=== PATIENT | male | born 1960 | race Two or more races ===

== ENCOUNTER 2018-11-03 06:54 | Emergency (ER) | payer MEDICAID, OTHER ==
[~2018-11-03] VITALS: Ht 177.8 cm; Wt 70.7 kg
[~2018-11-03 06:54] MED LIST: CYCL-1 PO; IBUP-1986 PO
[2018-11-03] MEDS ORDERED: chlorpheniramine 4mg tablet PO PRN (07:50)
[2018-11-03 07:51] LABS: BASOPHILS # (AUTO) 0.1 X10'3 (0-0.2); BASOPHILS % (AUTO) 1.3 % (0-1); EOSINOPHILS # (AUTO) 0.1 X10'3 (0-0.9); EOSINOPHILS % (AUTO) 1.5 % (0-6); HEMATOCRIT 35.9 % (42.0-52.0); HEMOGLOBIN 12.1 g/dl (14.0-17.9); LYMPHOCYTES % (AUTO) 32.1 % (21-51); MEAN CORPUSCULAR HEMOGLOBIN 33.7 PG (27.0-31.0); MEAN CORPUSCULAR HGB CONC 33.8 g/dL (33.0-36.5); MEAN CORPUSCULAR VOLUME 99.7 FL (78-98); MEAN PLATELET VOLUME 7.9 FL (7.4-10.4); MONOCYTES # (AUTO) 0.3 X10'3 (0-0.9); MONOCYTES % (AUTO) 5.5 % (2-12); NEUTROPHILS # (AUTO) 3.6 X10'3 (1.8-7.7); NEUTROPHILS % (AUTO) 59.6 % (42-75); PLATELET COUNT 227 X10'3 (140-440); RED CELL DISTRIBUTION WIDTH 13.8 % (11.5-14.5); WHITE BLOOD COUNT 6.1 X10'3 (4.5-11.0)
[2018-11-03 07:58] LABS: ALANINE AMINOTRANSFERASE 103 U/L (12-78); ALBUMIN 3.1 G/DL (3.4-5.0); ALBUMIN/GLOBULIN RATIO 0.7 (1.1-1.5); ALKALINE PHOSPHATASE 73 IU/L (46-116); ANION GAP 9 (8-16); ASPARTATE AMINO TRANSFERASE 175 U/L (10-37); BILIRUBIN,TOTAL 0.4 MG/DL (0.1-1.0); BLOOD UREA NITROGEN 8 MG/DL (7-18); BUN/CREATININE RATIO 10.5 (5.4-32.0); CHLORIDE 106 MMOL/L (99-107); CREATININE 0.76 MG/DL (0.60-1.10); GLUCOSE 105 MG/DL (70-104); POTASSIUM 4.6 MMOL/L (3.5-5.1); SODIUM 142 MMOL/L (135-145); TOTAL CARBON DIOXIDE 27.3 MMOL/L (24-32); TOTAL PROTEIN 7.3 G/DL (6.4-8.2); eGFR > 90 ML/MIN
[2018-11-03] MEDS ORDERED: AZIT-72 PO (09:12)
[2018-11-03] MEDS ORDERED: CHL4T PO (09:12)
[2018-11-03] MEDS ORDERED: IBUP-1984 PO (09:12)
[2018-11-03] MEDS ORDERED: azithromycin 250mg tablet PO ONE (09:20)
[2018-11-03 09:47] VITALS: BP 154/103
== END 2018-11-03 09:50 | disposition home or self-care (01) ==
LOC: ER 06:55
DX: J18.9 Pneumonia, unspecified organism (principal); J32.1 Chronic frontal sinusitis; F17.200 Nicotine dependence, unspecified, uncomplicated; F12.90 Cannabis use, unspecified, uncomplicated; Z59.0 Homelessness; Z56.0 Unemployment, unspecified
CPT/HCPCS: 36415; 71045; 80053; 83880; 84484; 85025; 85610; 93005; 99284

== ENCOUNTER 2018-12-06 07:53 | Inpatient (IN) | payer MEDICAID ==
[~2018-12-06] VITALS: Ht 177.8 cm; Wt 75.0 kg
[~2018-12-06 07:53] MED LIST changes: +CHL4T PO
[2018-12-06 08:34] LABS: BASOPHILS # (AUTO) 0.1 X10'3 (0-0.2); BASOPHILS % (AUTO) 1.1 % (0-1); EOSINOPHILS % (AUTO) 0.2 % (0-6); HEMOGLOBIN 12.3 g/dl (14.0-17.9); LYMPHOCYTES # (AUTO) 2.1 X10'3 (1.1-4.8); LYMPHOCYTES % (AUTO) 28.9 % (21-51); MEAN CORPUSCULAR HEMOGLOBIN 33.2 PG (27.0-31.0); MEAN CORPUSCULAR HGB CONC 34.3 g/dL (33.0-36.5); MEAN CORPUSCULAR VOLUME 96.9 FL (78-98); MEAN PLATELET VOLUME 8.3 FL (7.4-10.4); MONOCYTES # (AUTO) 0.5 X10'3 (0-0.9); MONOCYTES % (AUTO) 6.6 % (2-12); NEUTROPHILS # (AUTO) 4.6 X10'3 (1.8-7.7); NEUTROPHILS % (AUTO) 63.2 % (42-75); PLATELET COUNT 311 X10'3 (140-440); RED BLOOD COUNT 3.71 X10'6 (4.70-6.10); RED CELL DISTRIBUTION WIDTH 13.7 % (11.5-14.5); WHITE BLOOD COUNT 7.3 X10'3 (4.5-11.0)
[2018-12-06 08:42] LABS: PARTIAL THROMBOPLASTIN TIME 28 SECONDS (22-32)
[2018-12-06 08:45] LABS: ALBUMIN 3.1 G/DL (3.4-5.0); ANION GAP 9 (8-16); BLOOD UREA NITROGEN 6 MG/DL (7-18); BUN/CREATININE RATIO 6.7 (5.4-32.0); CALCIUM 8.6 MG/DL (8.5-10.1); CHLORIDE 94 MMOL/L (99-107); GLUCOSE 126 MG/DL (70-104); POTASSIUM 4.5 MMOL/L (3.5-5.1); SODIUM 127 MMOL/L (135-145); TOTAL CARBON DIOXIDE 24.3 MMOL/L (24-32); TOTAL PROTEIN 6.7 G/DL (6.4-8.2); eGFR 86 ML/MIN
[2018-12-06 08:46] LABS: ALANINE AMINOTRANSFERASE 132 U/L (12-78); ALBUMIN/GLOBULIN RATIO 0.9 (1.1-1.5); ALKALINE PHOSPHATASE 83 IU/L (46-116); ASPARTATE AMINO TRANSFERASE 110 U/L (10-37)
[2018-12-06] MEDS ORDERED: furosemide 10 MG/1 ML 10ml inj IV ONE (09:05)
--- NOTE | 2018-12-06 09:28 | NUR ---
breaking primary RN, pt was asking questions about his health in general, educated him that he needs to stop drinking, as his brother of liver failure, he states he has reduced his etoh a lot, I told him great job, continue to safely reduce wtoh consumption
[2018-12-06] MEDS ORDERED: FURO-150 PO (09:58)
[2018-12-06] MEDS ORDERED: potassium Cl 20 mEq SR tablet PO PRN (10:15)
[2018-12-06] MEDS ORDERED: potassium CL 10mEq/100ml bag 100 ML IV PRN ×2 (10:15)
[2018-12-06] MEDS ORDERED: acetaminophen 325mg tablet PO PRN ×2 (10:15)
[2018-12-06] MEDS ORDERED: ondansetron/PF 4mg/2ml inj IV PRN (10:15)
[2018-12-06] MEDS: K and/or MAG REPLACEMENT MC SCH (10:15)
[2018-12-06] MEDS ORDERED: magnesium 4gm in 100ml NS 100 ML IV PRN (10:15)
[2018-12-06] MEDS ORDERED: bisacodyl 10mg suppository rectal RC PRN (10:15)
[2018-12-06] MEDS ORDERED: magnesium hydroxide 30ml (MOM) UD suspension PO PRN (10:15)
[2018-12-06] MEDS ORDERED: magnesium 2GM in 50ml NS 50 ML IV PRN (10:15)
[2018-12-06] MEDS ORDERED: metoclopramide 5 mg/ml inj IV PRN (10:15)
[2018-12-06] MEDS ORDERED: diphenhydrAMINE 25mg capsule PO PRN (10:15)
[2018-12-06] MEDS ORDERED: diphenhydrAMINE 50 mg/ml inj IV PRN (10:15)
[2018-12-06] MEDS ORDERED: mag hydrox/Alum hydrox/simeth 30ml oral suspension PO PRN (10:15)
[2018-12-06] MEDS ORDERED: HYDROcodone/acetaminophen 5mg/325mg tablet PO PRN (10:15)
[2018-12-06] MEDS ORDERED: LORazepam 2 mg/ml vial IV ONE (10:15)
[2018-12-06 10:41] LABS: ETHANOL < 0.010 GM/DL (0.0-0.010)
[2018-12-06 10:58] LABS: HEMOGLOBIN A1C 5.3 % (4.5-6.2)
[2018-12-06 11:04] LABS: PHOSPHORUS 3.9 MG/DL (2.3-4.5)
[2018-12-06 11:31] LABS: URINE AMPHETAMINE SCREEN NEGATIVE (Neg); URINE BARBITUATE SCREEN NEGATIVE (Neg); URINE BENZODIAZEPINES SCREEN NEGATIVE (Neg); URINE CANNABINOID SCREEN POSITIVE (Neg); URINE COCAINE SCREEN NEGATIVE (Neg); URINE METHADONE SCREEN NEGATIVE (Neg); URINE OPIATE SCREEN NEGATIVE (Neg); URINE PHENCYCLIDINE SCREEN NEGATIVE (Neg)
--- NOTE | 2018-12-06 12:00 | NUR ---
Patient in room PCU 3023. I have received report from RADHA Funes RN and had the opportunity to ask questions. Patient not yet arrived on unit.
--- NOTE | 2018-12-06 12:20 | NUR ---
Received report from ROXANNE Saini. Awaiting patient arrival to U 3025R.
[2018-12-06 12:30] VITALS: BP 130/96
--- NOTE | 2018-12-06 12:30 | NUR ---
Received report from Yeny OLIVEIRA. Patient ambulated self from ED bed to PCU bed with no complications. Oriented to room, call light within reach. 2 RN skin check, noted dryness on hands and feet, and thickened nail beds. Vital signs BP 130/96 HR 113 R 16 T 98.0 F 02 99 RA. All needs met at this time.
[2018-12-06] MEDS ORDERED: NO HOME MEDS (13:08)
[2018-12-06] MEDS ORDERED: LORazepam 1 MG tablet PO PRN (13:15)
[2018-12-06] MEDS ORDERED: haloperidol 5mg tablet PO PRN (13:15)
[2018-12-06] MEDS ORDERED: LORazepam 2 mg/ml vial IV PRN (13:15)
[2018-12-06] MEDS ORDERED: haloperidol lactate 5mg/ml inj IM PRN (13:15)
[2018-12-06 15:00] VITALS: BP 137/95
--- NOTE | 2018-12-06 18:18 | NUR ---
Orientee documentation: I have reviewed and agree with all interventions, assessments performed and documented by ROXANNE Saini. Orientee Medication Administration: For this medication-pass time frame, all medication were reviewed, dispensed, administered and documented per hospital policy by ROXANNE Saini.
--- NOTE | 2018-12-06 18:29 | NUR ---
Problems reprioritized. Patient report given, questions answered & plan of care reviewed with Brooklyn OLIVEIRA. Patient stable at transfer of care.
[2018-12-06 19:00] VITALS: BP 130/93
[2018-12-06] MEDS: furosemide 40mg/4ml inj IV SCH (19:47)
[2018-12-06] MEDS ORDERED: temazepam 15mg capsule PO PRN (21:00)
[2018-12-06 23:00] VITALS: BP 105/72
[2018-12-07 03:00] VITALS: BP 122/88
[2018-12-07] MEDS ORDERED: pneumococcal 23-VAL P-sac vacc 25 mcg/0.5ml vial IMVAC ONE (04:25)
[2018-12-07 05:10] LABS: ALANINE AMINOTRANSFERASE 111 U/L (12-78); ALBUMIN 2.8 G/DL (3.4-5.0); ALBUMIN/GLOBULIN RATIO 0.8 (1.1-1.5); ALKALINE PHOSPHATASE 74 IU/L (46-116); ANION GAP 11 (8-16); ASPARTATE AMINO TRANSFERASE 82 U/L (10-37); BILIRUBIN,TOTAL 1.1 MG/DL (0.1-1.0); BLOOD UREA NITROGEN 8 MG/DL (7-18); BUN/CREATININE RATIO 8.7 (5.4-32.0); CALCIUM 8.5 MG/DL (8.5-10.1); CHLORIDE 96 MMOL/L (99-107); CHOL/HDL RATIO 2.9 (0.00-4.99); CHOLESTEROL 161 MG/DL (0-200); CREATININE 0.92 MG/DL (0.60-1.10); GLUCOSE 98 MG/DL (70-104); HDL CHOLESTEROL 55 MG/DL (35-60); LDL CHOLESTEROL 103 MG/DL (50-100); MAGNESIUM 1.3 MG/DL (1.5-2.4); PHOSPHORUS 4.2 MG/DL (2.3-4.5); POTASSIUM 3.5 MMOL/L (3.5-5.1); SODIUM 133 MMOL/L (135-145); TOTAL CARBON DIOXIDE 26.1 MMOL/L (24-32); TOTAL PROTEIN 6.2 G/DL (6.4-8.2); TRIGLYCERIDES 59 MG/DL (20-135); eGFR 84 ML/MIN
[2018-12-07 05:21] LABS: BASOPHILS # (AUTO) 0.1 X10'3 (0-0.2); BASOPHILS % (AUTO) 1.1 % (0-1); EOSINOPHILS # (AUTO) 0.1 X10'3 (0-0.9); EOSINOPHILS % (AUTO) 1.1 % (0-6); HEMATOCRIT 40.2 % (42.0-52.0); HEMOGLOBIN 13.3 g/dl (14.0-17.9); LYMPHOCYTES # (AUTO) 2.6 X10'3 (1.1-4.8); LYMPHOCYTES % (AUTO) 42.8 % (21-51); MEAN CORPUSCULAR HEMOGLOBIN 32.3 PG (27.0-31.0); MEAN CORPUSCULAR HGB CONC 33.2 g/dL (33.0-36.5); MEAN CORPUSCULAR VOLUME 97.5 FL (78-98); MEAN PLATELET VOLUME 8.3 FL (7.4-10.4); MONOCYTES # (AUTO) 0.5 X10'3 (0-0.9); MONOCYTES % (AUTO) 8.9 % (2-12); NEUTROPHILS # (AUTO) 2.8 X10'3 (1.8-7.7); NEUTROPHILS % (AUTO) 46.1 % (42-75); PLATELET COUNT 284 X10'3 (140-440); RED BLOOD COUNT 4.12 X10'6 (4.70-6.10); RED CELL DISTRIBUTION WIDTH 13.8 % (11.5-14.5); WHITE BLOOD COUNT 6.1 X10'3 (4.5-11.0)
--- NOTE | 2018-12-07 06:10 | NUR ---
Problems reprioritized. Patient report given, questions answered & plan of care reviewed with Rhea OLIVEIRA & Muna RN.
[2018-12-07 07:11] VITALS: BP 123/87
--- NOTE | 2018-12-07 07:27 | NUR ---
Patient in room PCU 3023. I have received report from ROXANNE Barahona and had the opportunity to ask questions and assume patient care.
[2018-12-07] MEDS: K and/or MAG REPLACEMENT MC SCH ×2 (08:00→09:02)
[2018-12-07] MEDS: furosemide 40mg/4ml inj IV SCH ×2 (08:58→21:48)
[2018-12-07] MEDS: folic acid 1mg tablet PO SCH (09:00)
[2018-12-07] MEDS: multivitamins, therapeutics tablet PO SCH (09:00)
[2018-12-07] MEDS: enoxaparin 40mg/0.4ml syringe SUBCUT SCH (09:00)
[2018-12-07] MEDS: thiamine 100mg tablet PO SCH (09:00)
[2018-12-07] MEDS: magnesium Cl slow-release 64mg tablet PO PRN ×2 (09:13→22:52)
[2018-12-07] MEDS ORDERED: FLU VACC QS2019-20 36MOS UP/PF 60 MCG/0.5 ML SYRINGE IMVAC ONE (10:00)
[2018-12-07 11:15] VITALS: BP 132/96
[2018-12-07] MEDS ORDERED: metoprolol tartrate 12.5mg (1/2 tablet) PO ONE (12:44)
[2018-12-07 15:00] VITALS: BP 118/85
[2018-12-07 18:00] VITALS: BP 121/89
--- NOTE | 2018-12-07 18:38 | NUR ---
Problems reprioritized. Patient report given, questions answered & plan of care reviewed with ROXANNE Barahona & ROXANNE Davila.
[2018-12-07] MEDS: metoprolol tartrate 12.5mg (1/2 tablet) PO SCH (21:48)
[2018-12-07 22:00] VITALS: BP 95/62
[2018-12-08 02:00] VITALS: BP 125/89
[2018-12-08 05:54] LABS: BASOPHILS # (AUTO) 0.1 X10'3 (0-0.2); BASOPHILS % (AUTO) 1.1 % (0-1); EOSINOPHILS # (AUTO) 0.1 X10'3 (0-0.9); EOSINOPHILS % (AUTO) 1.7 % (0-6); HEMOGLOBIN 12.2 g/dl (14.0-17.9); LYMPHOCYTES # (AUTO) 2.6 X10'3 (1.1-4.8); LYMPHOCYTES % (AUTO) 41.5 % (21-51); MEAN CORPUSCULAR HEMOGLOBIN 32.7 PG (27.0-31.0); MEAN PLATELET VOLUME 8.1 FL (7.4-10.4); MONOCYTES # (AUTO) 0.5 X10'3 (0-0.9); MONOCYTES % (AUTO) 7.1 % (2-12); NEUTROPHILS # (AUTO) 3.1 X10'3 (1.8-7.7); NEUTROPHILS % (AUTO) 48.6 % (42-75); PLATELET COUNT 257 X10'3 (140-440); RED BLOOD COUNT 3.75 X10'6 (4.70-6.10); RED CELL DISTRIBUTION WIDTH 13.3 % (11.5-14.5); WHITE BLOOD COUNT 6.4 X10'3 (4.5-11.0)
[2018-12-08 06:00] VITALS: BP 120/83
--- NOTE | 2018-12-08 06:00 | NUR ---
Patient in room PCU 3023. I have received report from Muna Najera RN and had the opportunity to ask questions and assume patient care.
--- NOTE | 2018-12-08 06:00 | NUR ---
Orientee Medication Administration: For this medication-pass time frame, all medication were reviewed, dispensed, administered and documented per hospital policy by Armida OLIVEIRA. Orientee documentation: I have reviewed and agree with all interventions, assessments performed and documented by Armida OLIVEIRA.
[2018-12-08 06:04] LABS: ALANINE AMINOTRANSFERASE 80 U/L (12-78); ALBUMIN 2.7 G/DL (3.4-5.0); ALBUMIN/GLOBULIN RATIO 0.8 (1.1-1.5); ALKALINE PHOSPHATASE 62 IU/L (46-116); ANION GAP 10 (8-16); ASPARTATE AMINO TRANSFERASE 49 U/L (10-37); BILIRUBIN,TOTAL 0.9 MG/DL (0.1-1.0); BLOOD UREA NITROGEN 11 MG/DL (7-18); BUN/CREATININE RATIO 11.6 (5.4-32.0); CHLORIDE 99 MMOL/L (99-107); CREATININE 0.95 MG/DL (0.60-1.10); GLUCOSE 92 MG/DL (70-104); MAGNESIUM 1.3 MG/DL (1.5-2.4); PHOSPHORUS 4.5 MG/DL (2.3-4.5); POTASSIUM 3.2 MMOL/L (3.5-5.1); SODIUM 136 MMOL/L (135-145); TOTAL CARBON DIOXIDE 27.2 MMOL/L (24-32); TOTAL PROTEIN 5.9 G/DL (6.4-8.2); eGFR 81 ML/MIN
--- NOTE | 2018-12-08 06:19 | NUR ---
Problems reprioritized. Patient report given, questions answered & plan of care reviewed with ROXANNE Lynch.
[2018-12-08] MEDS: potassium Cl 20 mEq SR tablet PO PRN ×2 (07:10→13:22)
[2018-12-08] MEDS: magnesium Cl slow-release 64mg tablet PO PRN (07:10)
[2018-12-08] MEDS: multivitamins, therapeutics tablet PO SCH (07:10)
[2018-12-08] MEDS: thiamine 100mg tablet PO SCH (07:10)
[2018-12-08] MEDS: folic acid 1mg tablet PO SCH (07:11)
[2018-12-08] MEDS: furosemide 40mg/4ml inj IV SCH (07:12)
[2018-12-08] MEDS: metoprolol tartrate 12.5mg (1/2 tablet) PO SCH (07:12)
[2018-12-08] MEDS: enoxaparin 40mg/0.4ml syringe SUBCUT SCH (07:13)
[2018-12-08] MEDS ORDERED: lisinopril 10 MG tablet PO SCH (08:00)
[2018-12-08 11:00] VITALS: BP 105/74
--- NOTE | 2018-12-08 12:01 | NUR ---
PAGER ID: [phone] MESSAGE: [id number] Kobe Tompkins is under the impression he is getting discharged today. Is that correct? ROXANNE Lynch Ext [phone]
[2018-12-08 13:33] LABS: HBSAG SCREEN Negative (Negative); HEP A AB, IGM Negative (Negative); HEP B CORE AB, IGM Negative (Negative); HEPATITIS C ANTIBODY <0.1 s/co ratio (0.0-0.9)
[2018-12-08 15:00] VITALS: BP 106/80
[2018-12-08] MEDS ORDERED: LISI10TA4 PO (16:51)
[2018-12-08] MEDS ORDERED: folic acid tablet PO (16:51)
[2018-12-08] MEDS ORDERED: METO25TA6 PO (16:51)
[2018-12-08] MEDS ORDERED: MULT-1179 PO (16:51)
[2018-12-08] MEDS ORDERED: FURO20TA4 PO (16:51)
[2018-12-08] MEDS ORDERED: thiamine tablet PO (16:51)
--- NOTE | 2018-12-08 17:13 | NUR ---
PAGER ID: [phone] MESSAGE: [id number] Kobe Tompkins doesn't have based beta renata for CHF core measure for EF under 40. Is currently on Lopressor, do you want him changed to Toprol-xl or another EBP beta renata? ROXANNE Lynch Ext [phone]
[2018-12-08] MEDS ORDERED: METO-539 PO (17:21)
--- NOTE | 2018-12-08 17:58 | NUR ---
Discharged. PIV taken out and tele was returned. Educated on CHF and CHF rehab. Educated on meds and follow-up. CM educated patient on [facility] who he will see for CHF follow-up since he has no PCP. ID ban cut off, and patient left with belongings. Patient walked home which is near hospital. Meds were called into [facility] on [address]. Stable for DC per .
--- NOTE | 2018-12-08 22:40 | NUR ---
Patient wanted to finish dinner before discharge. He was A&Ox4, in no apparent distress, able to dress himself, and walked out the hospital at 1940.
--- NOTE | 2018-12-08 22:44 | NUR ---
Patient in room PCU 3023. I have received report from ROXANNE Lynch and had the opportunity to ask questions and assume patient care.
== END 2018-12-08 19:54 | disposition home or self-care (01) | DRG 194 ==
LOC: ER 07:54 → ED HOLD 10:14 → PCU 3S 12:27
PROVIDERS: ADMIT Family Medicine; ATTEND Internal Medicine
PROC: 3E02340 Introduction of Influenza Vaccine into Muscle, Percutaneous Approach (ICD-10-PCS; principal; 2018-12-07)
PROC: 3E0234Z Introduction of Serum, Toxoid and Vaccine into Muscle, Percutaneous Approach (ICD-10-PCS; 2018-12-07)
DX: I11.0 Hypertensive heart disease with heart failure (principal); E87.1 Hypo-osmolality and hyponatremia; F10.20 Alcohol dependence, uncomplicated; I50.21 Acute systolic (congestive) heart failure; F12.90 Cannabis use, unspecified, uncomplicated; R00.0 Tachycardia, unspecified; R74.0 Nonspecific elevation of levels of transaminase and lactic acid dehydrogenase [LDH]; Z59.0 Homelessness; Z23 Encounter for immunization
CPT/HCPCS: 36415; 71045; 80053; 80061; 80074; 80305; 80320; 83036; 83735; 83880; 84100; 84443; 84484; 85025; 85610; 85730; 87081; 90732; 93005; 93306; 96374; 99285; G0378; J1650; J1940; J2060

== ENCOUNTER 2018-12-10 23:50 | Emergency (ER) | payer MEDICAID ==
[~2018-12-10] VITALS: Ht 177.8 cm; Wt 73.4 kg
[~2018-12-10 23:50] MED LIST changes: -CHL4T PO; -CYCL-1 PO; +FURO20TA4 PO; -IBUP-1986 PO; +LISI10TA4 PO; +METO-539 PO; +MULT-1179 PO; +folic acid tablet PO; +thiamine tablet PO
[2018-12-11 00:50] LABS: BASOPHILS # (AUTO) 0.1 X10'3 (0-0.2); BASOPHILS % (AUTO) 1.4 % (0-1); EOSINOPHILS # (AUTO) 0.1 X10'3 (0-0.9); EOSINOPHILS % (AUTO) 1.5 % (0-6); HEMATOCRIT 34.8 % (42.0-52.0); HEMOGLOBIN 11.9 g/dl (14.0-17.9); LYMPHOCYTES # (AUTO) 2.7 X10'3 (1.1-4.8); MEAN CORPUSCULAR HEMOGLOBIN 32.6 PG (27.0-31.0); MEAN CORPUSCULAR HGB CONC 34.2 g/dL (33.0-36.5); MEAN CORPUSCULAR VOLUME 95.3 FL (78-98); MEAN PLATELET VOLUME 7.9 FL (7.4-10.4); MONOCYTES # (AUTO) 0.4 X10'3 (0-0.9); MONOCYTES % (AUTO) 5.6 % (2-12); NEUTROPHILS # (AUTO) 3.2 X10'3 (1.8-7.7); NEUTROPHILS % (AUTO) 49.5 % (42-75); PLATELET COUNT 265 X10'3 (140-440); RED BLOOD COUNT 3.65 X10'6 (4.70-6.10); RED CELL DISTRIBUTION WIDTH 13.5 % (11.5-14.5); WHITE BLOOD COUNT 6.5 X10'3 (4.5-11.0)
[2018-12-11] MEDS ORDERED: ondansetron/PF 4mg/2ml inj IV ONE (00:55)
[2018-12-11] MEDS ORDERED: famotidine/PF 10 mg/ml inj IV ONE (00:55)
[2018-12-11] MEDS ORDERED: mag hydrox/Alum hydrox/simeth 30ml oral suspension PO ONE (00:55)
[2018-12-11 00:59] LABS: PARTIAL THROMBOPLASTIN TIME 27 SECONDS (22-32)
[2018-12-11 01:02] LABS: ALANINE AMINOTRANSFERASE 81 U/L (12-78); ALBUMIN 3.2 G/DL (3.4-5.0); ALBUMIN/GLOBULIN RATIO 0.8 (1.1-1.5); ALKALINE PHOSPHATASE 70 IU/L (46-116); ANION GAP 9 (8-16); ASPARTATE AMINO TRANSFERASE 55 U/L (10-37); BILIRUBIN,TOTAL 0.6 MG/DL (0.1-1.0); BLOOD UREA NITROGEN 11 MG/DL (7-18); BUN/CREATININE RATIO 12.6 (5.4-32.0); CALCIUM 8.7 MG/DL (8.5-10.1); CHLORIDE 92 MMOL/L (99-107); CREATININE 0.87 MG/DL (0.60-1.10); GLUCOSE 104 MG/DL (70-104); POTASSIUM 4.5 MMOL/L (3.5-5.1); SODIUM 125 MMOL/L (135-145); TOTAL CARBON DIOXIDE 24.1 MMOL/L (24-32); eGFR 90 ML/MIN
[2018-12-11 01:07] LABS: ETHANOL < 0.010 GM/DL (0.0-0.010)
[2018-12-11] MEDS ORDERED: aspirin 325mg tablet PO ONE (01:10)
[2018-12-11] MEDS ORDERED: furosemide 10 MG/1 ML 10ml inj IV ONE (01:15)
[2018-12-11] MEDS ORDERED: furosemide 40mg/4ml inj IV ONE (01:15)
[2018-12-11] MEDS ORDERED: pantoprazole 40 MG vial IV ONE (01:20)
--- NOTE | 2018-12-11 02:34 | NUR ---
Patient is sleeping comfortably in bed.
[2018-12-11] MEDS ORDERED: ONDA8TAB6 PO (03:43)
[2018-12-11] MEDS ORDERED: PANT-47 PO (03:43)
[2018-12-11 04:08] VITALS: BP 113/76
== END 2018-12-11 04:10 | disposition home or self-care (01) ==
LOC: ER 23:51
DX: E87.1 Hypo-osmolality and hyponatremia (principal); R79.89 Other specified abnormal findings of blood chemistry; I50.9 Heart failure, unspecified; F12.90 Cannabis use, unspecified, uncomplicated; Z56.0 Unemployment, unspecified; Z59.0 Homelessness; Z79.899 Other long term (current) drug therapy
CPT/HCPCS: 36415; 71045; 80053; 80320; 83880; 84484; 85025; 85610; 85730; 93005; 96374; 96375; 99284; C9113; J1940; J2405; J3490

== ENCOUNTER 2019-01-11 08:21 | Emergency (ER) | payer MEDICAID ==
[~2019-01-11] VITALS: Ht 177.8 cm; Wt 83.6 kg
[~2019-01-11 08:21] MED LIST changes: -METO-539 PO; +ONDA8TAB6 PO; +PANT-47 PO
[2019-01-11] MEDS ORDERED: furosemide 10 MG/1 ML 10ml inj IV ONE (08:50)
[2019-01-11 09:07] LABS: BASOPHILS # (AUTO) 0.1 X10'3 (0-0.2); BASOPHILS % (AUTO) 1.3 % (0-1); EOSINOPHILS # (AUTO) 0.1 X10'3 (0-0.9); EOSINOPHILS % (AUTO) 0.9 % (0-6); HEMATOCRIT 36.3 % (42.0-52.0); HEMOGLOBIN 12.1 g/dl (14.0-17.9); LYMPHOCYTES # (AUTO) 1.9 X10'3 (1.1-4.8); LYMPHOCYTES % (AUTO) 32.8 % (21-51); MEAN CORPUSCULAR HEMOGLOBIN 30.6 PG (27.0-31.0); MEAN CORPUSCULAR HGB CONC 33.4 g/dL (33.0-36.5); MEAN CORPUSCULAR VOLUME 91.6 FL (78-98); MEAN PLATELET VOLUME 8.6 FL (7.4-10.4); MONOCYTES # (AUTO) 0.5 X10'3 (0-0.9); MONOCYTES % (AUTO) 7.7 % (2-12); NEUTROPHILS # (AUTO) 3.4 X10'3 (1.8-7.7); NEUTROPHILS % (AUTO) 57.3 % (42-75); PLATELET COUNT 228 X10'3 (140-440); RED BLOOD COUNT 3.97 X10'6 (4.70-6.10); RED CELL DISTRIBUTION WIDTH 15.5 % (11.5-14.5); WHITE BLOOD COUNT 5.9 X10'3 (4.5-11.0)
[2019-01-11 09:31] LABS: ALANINE AMINOTRANSFERASE 33 U/L (12-78); ALBUMIN 3.3 G/DL (3.4-5.0); ALKALINE PHOSPHATASE 74 IU/L (46-116); ANION GAP 12 (8-16); ASPARTATE AMINO TRANSFERASE 44 U/L (10-37); BLOOD UREA NITROGEN 15 MG/DL (7-18); BUN/CREATININE RATIO 14.2 (5.4-32.0); CHLORIDE 91 MMOL/L (99-107); CREATININE 1.06 MG/DL (0.60-1.10); GLUCOSE 89 MG/DL (70-104); POTASSIUM 4.3 MMOL/L (3.5-5.1); SODIUM 127 MMOL/L (135-145); TOTAL CARBON DIOXIDE 23.9 MMOL/L (24-32); TOTAL PROTEIN 6.6 G/DL (6.4-8.2); eGFR 71 ML/MIN
[2019-01-11 09:34] LABS: URINE AMPHETAMINE SCREEN POSITIVE (Neg); URINE BARBITUATE SCREEN NEGATIVE (Neg); URINE BENZODIAZEPINES SCREEN NEGATIVE (Neg); URINE CANNABINOID SCREEN POSITIVE (Neg); URINE COCAINE SCREEN NEGATIVE (Neg); URINE METHADONE SCREEN NEGATIVE (Neg); URINE OPIATE SCREEN NEGATIVE (Neg); URINE PHENCYCLIDINE SCREEN NEGATIVE (Neg)
[2019-01-11 09:40] LABS: MAGNESIUM 1.7 MG/DL (1.5-2.4)
[2019-01-11 09:41] LABS: ETHANOL < 0.010 GM/DL (0.0-0.010)
[2019-01-11] MEDS ORDERED: FURO40TA4 PO (09:57)
[2019-01-11 10:09] VITALS: BP 132/92
== END 2019-01-11 10:15 | disposition home or self-care (01) ==
LOC: ER 08:22
DX: F10.20 Alcohol dependence, uncomplicated (principal); E87.1 Hypo-osmolality and hyponatremia; F19.10 Other psychoactive substance abuse, uncomplicated; I50.9 Heart failure, unspecified; F12.90 Cannabis use, unspecified, uncomplicated; Z59.0 Homelessness; Z56.0 Unemployment, unspecified; Z79.899 Other long term (current) drug therapy; Y90.9 Presence of alcohol in blood, level not specified
CPT/HCPCS: 36415; 71045; 80053; 80305; 80320; 83735; 83880; 84484; 85025; 93005; 96374; 99284; J1940

== ENCOUNTER 2019-02-07 21:36 | Inpatient (IN) | payer MEDICAID ==
[~2019-02-07] VITALS: Ht 177.8 cm; Wt 78.5 kg
[2019-02-07] MEDS ORDERED: ondansetron/PF 4mg/2ml inj IV ONE (21:50)
[2019-02-07] MEDS ORDERED: normal saline 1000ML IV soln IV ONE (21:50)
[2019-02-07] MEDS ORDERED: famotidine/PF 10 mg/ml inj IV ONE (21:50)
[2019-02-07 22:13] LABS: BASOPHILS # (AUTO) 0.1 X10'3 (0-0.2); EOSINOPHILS % (AUTO) 0.3 % (0-6); HEMATOCRIT 37.4 % (42.0-52.0); HEMOGLOBIN 12.6 g/dl (14.0-17.9); LYMPHOCYTES # (AUTO) 1.9 X10'3 (1.1-4.8); LYMPHOCYTES % (AUTO) 24.7 % (21-51); MEAN CORPUSCULAR HEMOGLOBIN 30.1 PG (27.0-31.0); MEAN CORPUSCULAR HGB CONC 33.6 g/dL (33.0-36.5); MEAN CORPUSCULAR VOLUME 89.7 FL (78-98); MEAN PLATELET VOLUME 8.1 FL (7.4-10.4); MONOCYTES # (AUTO) 0.4 X10'3 (0-0.9); MONOCYTES % (AUTO) 5.1 % (2-12); NEUTROPHILS # (AUTO) 5.4 X10'3 (1.8-7.7); NEUTROPHILS % (AUTO) 68.9 % (42-75); PLATELET COUNT 268 X10'3 (140-440); RED BLOOD COUNT 4.17 X10'6 (4.70-6.10); RED CELL DISTRIBUTION WIDTH 16.8 % (11.5-14.5); WHITE BLOOD COUNT 7.8 X10'3 (4.5-11.0)
[2019-02-07] MEDS ORDERED: POTA10TA19 PO (22:23)
[2019-02-07] MEDS ORDERED: FOLI0.4T2 PO (22:23)
[2019-02-07] MEDS ORDERED: METO-395 PO (22:23)
[2019-02-07] MEDS ORDERED: THIA100T70 PO (22:23)
[2019-02-07 22:26] LABS: ALANINE AMINOTRANSFERASE 45 U/L (12-78); ALBUMIN 3.3 G/DL (3.4-5.0); ALBUMIN/GLOBULIN RATIO 0.9 (1.1-1.5); ALKALINE PHOSPHATASE 88 IU/L (46-116); ANION GAP 8 (8-16); ASPARTATE AMINO TRANSFERASE 65 U/L (10-37); BILIRUBIN,TOTAL 1.3 MG/DL (0.1-1.0); BLOOD UREA NITROGEN 8 MG/DL (7-18); BUN/CREATININE RATIO 7.8 (5.4-32.0); CALCIUM 8.9 MG/DL (8.5-10.1); CHLORIDE 92 MMOL/L (99-107); CREATININE 1.03 MG/DL (0.60-1.10); GLUCOSE 101 MG/DL (70-104); LIPASE 68 U/L (73-393); POTASSIUM 4.5 MMOL/L (3.5-5.1); SODIUM 126 MMOL/L (135-145); TOTAL CARBON DIOXIDE 26.3 MMOL/L (24-32); TOTAL PROTEIN 6.8 G/DL (6.4-8.2); eGFR 74 ML/MIN
[2019-02-07] MEDS ORDERED: morphine 4 MG/ML inj SYRINge IV ONE (22:30)
[2019-02-07 22:35] LABS: ETHANOL < 0.010 GM/DL (0.0-0.010)
--- NOTE | 2019-02-07 22:35 | NUR ---
Patient with history of CHF and has not been taking his lasix and his lower extremeties are more swollen than normal. Spoke to Quirino about this finding and second liter of saline will be held. 1L normal saline has infused.
[2019-02-07] MEDS ORDERED: metoclopramide 5 mg/ml inj IV ONE (22:55)
[2019-02-07] MEDS ORDERED: furosemide 10 MG/1 ML 10ml inj IV ONE (23:15)
--- NOTE | 2019-02-07 23:34 | NUR ---
Patient is resting comfortably. There is no retching and the patient denies any pain.
[2019-02-07] MEDS ORDERED: ondansetron/PF 4mg/2ml inj IV PRN (23:55)
[2019-02-07] MEDS ORDERED: potassium Cl 20 mEq SR tablet PO PRN ×2 (23:55)
[2019-02-07] MEDS ORDERED: acetaminophen 325mg tablet PO PRN (23:55)
[2019-02-07] MEDS ORDERED: magnesium 4gm in 100ml NS 100 ML IV PRN (23:55)
[2019-02-07] MEDS ORDERED: potassium CL 10mEq/100ml bag 100 ML IV PRN ×2 (23:55)
[2019-02-07] MEDS ORDERED: magnesium Cl slow-release 64mg tablet PO PRN (23:55)
[2019-02-07] MEDS ORDERED: magnesium 2GM in 50ml NS 50 ML IV PRN (23:55)
--- NOTE | 2019-02-08 00:46 | NUR ---
Patient continues to rest comfortably and is in no distress.
[2019-02-08 04:41] LABS: ALBUMIN 2.9 G/DL (3.4-5.0); ANION GAP 7 (8-16); BLOOD UREA NITROGEN 8 MG/DL (7-18); CALCIUM 8.2 MG/DL (8.5-10.1); CHLORIDE 95 MMOL/L (99-107); GLUCOSE 94 MG/DL (70-104); MAGNESIUM 1.5 MG/DL (1.5-2.4); POTASSIUM 4.6 MMOL/L (3.5-5.1); SODIUM 128 MMOL/L (135-145); TOTAL CARBON DIOXIDE 25.6 MMOL/L (24-32); eGFR 76 ML/MIN
--- NOTE | 2019-02-08 05:20 | NUR ---
Patient continues to sleep comfortably.
--- NOTE | 2019-02-08 06:50 | NUR ---
Received report from ROXANNE Aguero in the ED. Will wait patient arrival to the ACCE unit.
--- NOTE | 2019-02-08 07:10 | NUR ---
Patient has just arrived to the ACCE unit. He comes by gurney but is able to ambulate into the room. Patient is alert and oriented x4. His vitals are stable and assessment completed, assumed care of patient.
[2019-02-08] MEDS ORDERED: pantoprazole 40mg Tablet.DR PO SCH (07:30)
[2019-02-08 08:00] VITALS: BP 117/90
[2019-02-08] MEDS ORDERED: furosemide 10 MG/1 ML 10ml inj IV SCH (08:00)
[2019-02-08] MEDS ORDERED: carVEDilol 3.125mg tablet PO SCH (08:00)
[2019-02-08] MEDS ORDERED: lisinopril 5mg tablet PO SCH (08:00)
[2019-02-08] MEDS ORDERED: K and/or MAG REPLACEMENT MC SCH (08:00)
[2019-02-08 10:28] LABS: BASOPHILS # (AUTO) 0.1 X10'3 (0-0.2); BASOPHILS % (AUTO) 0.7 % (0-1); EOSINOPHILS % (AUTO) 0.5 % (0-6); HEMATOCRIT 39.4 % (42.0-52.0); HEMOGLOBIN 13.1 g/dl (14.0-17.9); LYMPHOCYTES # (AUTO) 1.7 X10'3 (1.1-4.8); LYMPHOCYTES % (AUTO) 21.1 % (21-51); MEAN CORPUSCULAR HEMOGLOBIN 30.2 PG (27.0-31.0); MEAN CORPUSCULAR HGB CONC 33.3 g/dL (33.0-36.5); MEAN CORPUSCULAR VOLUME 90.7 FL (78-98); MEAN PLATELET VOLUME 8.3 FL (7.4-10.4); MONOCYTES # (AUTO) 0.5 X10'3 (0-0.9); MONOCYTES % (AUTO) 6.8 % (2-12); NEUTROPHILS # (AUTO) 5.7 X10'3 (1.8-7.7); NEUTROPHILS % (AUTO) 70.9 % (42-75); PLATELET COUNT 264 X10'3 (140-440); RED BLOOD COUNT 4.35 X10'6 (4.70-6.10); RED CELL DISTRIBUTION WIDTH 16.4 % (11.5-14.5)
[2019-02-08 11:00] VITALS: BP 107/75
[2019-02-08] MEDS ORDERED: FURO-149 PO (13:06)
[2019-02-08] MEDS ORDERED: PANT-47 PO (13:06)
--- NOTE | 2019-02-08 14:10 | NUR ---
Patient in rm 309 on ACCE, Shannan Rudd Order for social media marketing specialist put in and patient to be discharged today. Thank you, Cole Dominguez RN [id number] ACCE
--- NOTE | 2019-02-08 15:27 | NUR ---
Patient is discharged. 18 gauge PIV removed from the right forearm. Cannula intact. Patient tolerated well. I went over all discharge instructions with the patient and new medications. New prescriptions called to [facility] on [address] per patient's request. Patient was reluctant to leave and to avoid any problems Security was contacted to escort the patient out. Patient was alert and oriented and in stable condition. All patient belongings were accounted for including his medications which he took with him. The room was checked and none of the patient's personal belongings remained.
== END 2019-02-08 15:30 | disposition home or self-care (01) | DRG 194 ==
LOC: ER 21:37 → ED HOLD 02-08 00:15 → EDBEDREQ 02-08 05:43 → MED 3N 02-08 07:10
PROVIDERS: ADMIT Internal Medicine; ATTEND Internal Medicine
DX: I11.0 Hypertensive heart disease with heart failure (principal); R18.8 Other ascites; I50.43 Acute on chronic combined systolic (congestive) and diastolic (congestive) heart failure; K29.20 Alcoholic gastritis without bleeding; F15.90 Other stimulant use, unspecified, uncomplicated; G89.29 Other chronic pain; K20.9 Esophagitis, unspecified; F10.20 Alcohol dependence, uncomplicated; F12.90 Cannabis use, unspecified, uncomplicated; M54.5 Low back pain; Z59.0 Homelessness
CPT/HCPCS: 36415; 71045; 71250; 80048; 80053; 80320; 83690; 83735; 83880; 84484; 85025; 85610; 86885; 86900; 86901; 87081; 93005; 96374; 96375; 96376; 99285; G0378; J1940; J2270; J2405; J2765; J3490

== ENCOUNTER 2019-03-14 18:12 | Emergency (ER) | payer MEDICAID ==
[~2019-03-14] VITALS: Ht 177.8 cm; Wt 75.0 kg
[~2019-03-14 18:12] MED LIST changes: +FOLI0.4T2 PO; +FURO-149 PO; -FURO20TA4 PO; +METO-395 PO; -ONDA8TAB6 PO; +POTA10TA19 PO; +THIA100T70 PO; -folic acid tablet PO; -thiamine tablet PO
[2019-03-14 20:36] LABS: ALANINE AMINOTRANSFERASE 33 U/L (12-78); ALBUMIN 3.2 G/DL (3.4-5.0); ALBUMIN/GLOBULIN RATIO 0.9 (1.1-1.5); ALKALINE PHOSPHATASE 123 IU/L (46-116); ANION GAP 12 (8-16); ASPARTATE AMINO TRANSFERASE 37 U/L (10-37); BILIRUBIN,TOTAL 2.1 MG/DL (0.1-1.0); BLOOD UREA NITROGEN 18 MG/DL (7-18); BUN/CREATININE RATIO 14.5 (5.4-32.0); CALCIUM 8.9 MG/DL (8.5-10.1); CHLORIDE 102 MMOL/L (99-107); CREATININE 1.24 MG/DL (0.60-1.10); GLUCOSE 71 MG/DL (70-104); POTASSIUM 4.5 MMOL/L (3.5-5.1); SODIUM 139 MMOL/L (135-145); TOTAL CARBON DIOXIDE 24.6 MMOL/L (24-32); TOTAL PROTEIN 6.9 G/DL (6.4-8.2); eGFR 59 ML/MIN
[2019-03-14 20:40] LABS: BASOPHILS # (AUTO) 0.1 X10'3 (0-0.2); BASOPHILS % (AUTO) 1.6 % (0-1); EOSINOPHILS # (AUTO) 0.1 X10'3 (0-0.9); EOSINOPHILS % (AUTO) 0.8 % (0-6); HEMATOCRIT 38.6 % (42.0-52.0); HEMOGLOBIN 12.7 g/dl (14.0-17.9); LYMPHOCYTES # (AUTO) 2.7 X10'3 (1.1-4.8); MEAN CORPUSCULAR HEMOGLOBIN 29.3 PG (27.0-31.0); MEAN CORPUSCULAR VOLUME 88.8 FL (78-98); MONOCYTES # (AUTO) 0.5 X10'3 (0-0.9); MONOCYTES % (AUTO) 6.5 % (2-12); NEUTROPHILS # (AUTO) 4.4 X10'3 (1.8-7.7); NEUTROPHILS % (AUTO) 56.1 % (42-75); PLATELET COUNT 239 X10'3 (140-440); RED BLOOD COUNT 4.35 X10'6 (4.70-6.10); RED CELL DISTRIBUTION WIDTH 19.2 % (11.5-14.5); WHITE BLOOD COUNT 7.8 X10'3 (4.5-11.0)
[2019-03-14] MEDS ORDERED: furosemide 10 MG/1 ML 10ml inj IV ONE (22:25)
[2019-03-14 23:38] LABS: ANISOCYTOSIS 2+; PLATELET ESTIMATE NORMAL; TARGET CELLS 1+
[2019-03-14 23:51] VITALS: BP 129/88
== END 2019-03-14 23:56 | disposition home or self-care (01) ==
LOC: ER 18:13
DX: R60.9 Edema, unspecified (principal); I50.9 Heart failure, unspecified; F12.90 Cannabis use, unspecified, uncomplicated; F17.200 Nicotine dependence, unspecified, uncomplicated; Z60.2 Problems related to living alone; Z59.0 Homelessness; Z56.0 Unemployment, unspecified; Z79.899 Other long term (current) drug therapy
CPT/HCPCS: 36415; 71045; 80053; 83880; 84484; 85025; 93005; 96374; 99284; J1940

== ENCOUNTER 2019-04-01 20:18 | Emergency (ER) | payer MEDICAID ==
[~2019-04-01] VITALS: Ht 177.8 cm; Wt 75.0 kg
[~2019-04-01 20:18] MED LIST changes: +CEPH500C2 PO; -FURO-149 PO; +FURO40TA4 PO; +LACT1CAP26 PO; -MULT-1179 PO; -PANT-47 PO; +PANT40TA4 PO
[2019-04-01] MEDS ORDERED: pantoprazole 40 MG vial IV ONE (20:35)
[2019-04-01] MEDS ORDERED: ondansetron/PF 4mg/2ml inj IV ONE (20:35)
[2019-04-01] MEDS ORDERED: famotidine/PF 10 mg/ml inj IV ONE (20:35)
[2019-04-01] MEDS ORDERED: haloperidol lactate 5mg/ml inj IM ONE (20:40)
[2019-04-01] MEDS ORDERED: metoclopramide 5 mg/ml inj IV ONE (20:50)
[2019-04-01] MEDS ORDERED: normal saline 1000ML IV soln IVB ONE ×2 (20:50→21:45)
[2019-04-01 20:52] LABS: BASOPHILS # (AUTO) 0.1 X10'3 (0-0.2); BASOPHILS % (AUTO) 1.4 % (0-1); EOSINOPHILS # (AUTO) 0.1 X10'3 (0-0.9); EOSINOPHILS % (AUTO) 1.5 % (0-6); HEMATOCRIT 34.7 % (42.0-52.0); HEMOGLOBIN 11.4 g/dl (14.0-17.9); LYMPHOCYTES # (AUTO) 2.2 X10'3 (1.1-4.8); LYMPHOCYTES % (AUTO) 31.4 % (21-51); MEAN CORPUSCULAR HEMOGLOBIN 29.5 PG (27.0-31.0); MEAN CORPUSCULAR HGB CONC 32.8 g/dL (33.0-36.5); MEAN CORPUSCULAR VOLUME 89.9 FL (78-98); MONOCYTES # (AUTO) 0.6 X10'3 (0-0.9); MONOCYTES % (AUTO) 8.2 % (2-12); NEUTROPHILS # (AUTO) 4.1 X10'3 (1.8-7.7); NEUTROPHILS % (AUTO) 57.5 % (42-75); PLATELET COUNT 296 X10'3 (140-440); RED BLOOD COUNT 3.86 X10'6 (4.70-6.10); WHITE BLOOD COUNT 7.1 X10'3 (4.5-11.0)
[2019-04-01 21:02] LABS: ALANINE AMINOTRANSFERASE 12 U/L (12-78); ALBUMIN/GLOBULIN RATIO 0.8 (1.1-1.5); ALKALINE PHOSPHATASE 124 IU/L (46-116); ANION GAP 8 (8-16); ASPARTATE AMINO TRANSFERASE 27 U/L (10-37); BLOOD UREA NITROGEN 14 MG/DL (7-18); BUN/CREATININE RATIO 13.7 (5.4-32.0); CHLORIDE 104 MMOL/L (99-107); CREATININE 1.02 MG/DL (0.60-1.10); ETHANOL 0.025 GM/DL (0.0-0.010); GLUCOSE 74 MG/DL (70-104); MAGNESIUM 1.8 MG/DL (1.5-2.4); POTASSIUM 4.4 MMOL/L (3.5-5.1); SODIUM 138 MMOL/L (135-145); TOTAL CARBON DIOXIDE 25.7 MMOL/L (24-32); TOTAL PROTEIN 6.9 G/DL (6.4-8.2); eGFR 74 ML/MIN
[2019-04-01] MEDS ORDERED: SUCR1TAB34 PO (21:20)
[2019-04-01] MEDS ORDERED: OMEP20CA15 PO (21:20)
[2019-04-01] MEDS ORDERED: ONDA4TAB6 PO (21:20)
[2019-04-01] MEDS ORDERED: FAMO20TA44 PO (21:20)
[2019-04-01 21:29] LABS: ANISOCYTOSIS 2+; PLATELET ESTIMATE NORMAL; TARGET CELLS FEW
[2019-04-01] MEDS ORDERED: mag hydrox/Alum hydrox/simeth 30ml oral suspension PO ONE (21:40)
[2019-04-01] MEDS ORDERED: sucralfate 1gm/10ml UD suspension PO SCH (21:40)
[2019-04-01] MEDS ORDERED: LIDOcaine Viscous 15ml cup MM PRN (21:40)
[2019-04-01] MEDS ORDERED: phenobarbital inj 260 MG in normal saline 100ml IV soln 100 ML IV ONE (21:45)
[2019-04-01] MEDS ORDERED: thiamine 100mg tablet PO ONE (21:45)
[2019-04-01] MEDS ORDERED: magnesium oxide 400mg tablet PO ONE (21:45)
[2019-04-02 00:05] VITALS: BP 110/86
== END 2019-04-02 00:07 | disposition home or self-care (01) ==
LOC: ER 20:18
DX: K29.20 Alcoholic gastritis without bleeding (principal); I42.9 Cardiomyopathy, unspecified; F15.10 Other stimulant abuse, uncomplicated; F12.90 Cannabis use, unspecified, uncomplicated; K21.9 Gastro-esophageal reflux disease without esophagitis; I50.9 Heart failure, unspecified; I11.0 Hypertensive heart disease with heart failure; F10.129 Alcohol abuse with intoxication, unspecified; F17.200 Nicotine dependence, unspecified, uncomplicated; Z86.73 Personal history of transient ischemic attack (TIA), and cerebral infarction without residual deficits; Z56.0 Unemployment, unspecified; Z59.0 Homelessness; Z60.2 Problems related to living alone; Z79.899 Other long term (current) drug therapy; Y90.0 Blood alcohol level of less than 20 mg/100 ml
CPT/HCPCS: 36415; 71045; 80053; 80320; 83735; 84484; 85025; 93005; 96361; 96365; 96372; 96375; 99285; C9113; J1630; J2405; J2560; J2765; J3490; J7030

== ENCOUNTER 2019-04-12 17:37 | Emergency (ER) | payer MEDICAID ==
[~2019-04-12] VITALS: Ht 177.8 cm; Wt 86.4 kg
[~2019-04-12 17:37] MED LIST changes: +FAMO20TA44 PO; +OMEP20CA15 PO; +ONDA4TAB6 PO; +SUCR1TAB34 PO
[2019-04-12] MEDS ORDERED: acetaminophen 325mg tablet PO ONE (20:05)
[2019-04-12 20:08] VITALS: BP 112/72
[2019-04-12 20:25] LABS: CLARITY,URINE CLEAR (Clear); COLOR,URINE YELLOW (Yellow); GLUCOSE, URINE NEGATIVE (Neg); KETONES,URINE TRACE mg/dl (Neg); LEUKOCYTE ESTERASE ,URINE TRACE (Neg); NITRITES, URINE NEGATIVE (Neg); OCCULT BLOOD,URINE NEGATIVE (Neg); PROTEIN,URINE NEGATIVE (Neg)
[2019-04-12 20:36] LABS: UA COLLECTION TYPE URINAL
[2019-04-12 20:37] LABS: WBC,URINE 0-4 /HPF (0-4)
[2019-04-12 20:38] LABS: BACTERIA,URINE NONE SEEN /HPF (Neg); COARSE GRANULAR CAST 0-3 /LPF (NEGATIVE); HYALINE CASTS 0-3 /LPF (NEGATIVE); RBC,URINE NONE SEEN /HPF (0-2); SQUAMOUS EPITHELIAL CELL,UR FEW /LPF (FEW)
[2019-04-12 20:44] LABS: BASOPHILS # (AUTO) 0.1 X10'3 (0-0.2); BASOPHILS % (AUTO) 2.2 % (0-1); EOSINOPHILS # (AUTO) 0.2 X10'3 (0-0.9); EOSINOPHILS % (AUTO) 3.2 % (0-6); HEMATOCRIT 32.6 % (42.0-52.0); LYMPHOCYTES # (AUTO) 1.8 X10'3 (1.1-4.8); LYMPHOCYTES % (AUTO) 31.5 % (21-51); MEAN CORPUSCULAR HEMOGLOBIN 30.4 PG (27.0-31.0); MEAN CORPUSCULAR HGB CONC 33.6 g/dL (33.0-36.5); MEAN CORPUSCULAR VOLUME 90.5 FL (78-98); MEAN PLATELET VOLUME 8.1 FL (7.4-10.4); MONOCYTES # (AUTO) 0.6 X10'3 (0-0.9); NEUTROPHILS % (AUTO) 53.1 % (42-75); PLATELET COUNT 255 X10'3 (140-440); RED BLOOD COUNT 3.61 X10'6 (4.70-6.10); RED CELL DISTRIBUTION WIDTH 19.1 % (11.5-14.5); WHITE BLOOD COUNT 5.7 X10'3 (4.5-11.0)
[2019-04-12 20:54] LABS: ALANINE AMINOTRANSFERASE 15 U/L (12-78); ALBUMIN 2.8 G/DL (3.4-5.0); ALBUMIN/GLOBULIN RATIO 0.8 (1.1-1.5); ALKALINE PHOSPHATASE 137 IU/L (46-116); ANION GAP 6 (8-16); ASPARTATE AMINO TRANSFERASE 26 U/L (10-37); BILIRUBIN,TOTAL 0.9 MG/DL (0.1-1.0); BLOOD UREA NITROGEN 19 MG/DL (7-18); BUN/CREATININE RATIO 15.1 (5.4-32.0); CALCIUM 8.2 MG/DL (8.5-10.1); CHLORIDE 101 MMOL/L (99-107); CREATININE 1.26 MG/DL (0.60-1.10); GLUCOSE 75 MG/DL (70-104); LIPASE 111 U/L (73-393); POTASSIUM 4.3 MMOL/L (3.5-5.1); SODIUM 135 MMOL/L (135-145); TOTAL PROTEIN 6.5 G/DL (6.4-8.2); eGFR 58 ML/MIN
[2019-04-12 21:12] LABS: PLATELET ESTIMATE NORMAL
[2019-04-12 21:13] LABS: ANISOCYTOSIS 2+
== END 2019-04-12 21:31 | disposition home or self-care (01) ==
LOC: ER 17:38
DX: R22.32 Localized swelling, mass and lump, left upper limb (principal); M79.602 Pain in left arm; I50.9 Heart failure, unspecified; I11.0 Hypertensive heart disease with heart failure; F12.90 Cannabis use, unspecified, uncomplicated; Z86.73 Personal history of transient ischemic attack (TIA), and cerebral infarction without residual deficits; Z60.2 Problems related to living alone; Z59.0 Homelessness; Z56.0 Unemployment, unspecified; Z79.2 Long term (current) use of antibiotics; Z79.899 Other long term (current) drug therapy
CPT/HCPCS: 36415; 73130; 80053; 81001; 83690; 85025; 87088; 99284

== ENCOUNTER 2019-04-23 18:24 | Inpatient (IN) | payer MEDICAID ==
[~2019-04-23] VITALS: Ht 177.8 cm; Wt 89.3 kg
[~2019-04-23 18:24] MED LIST changes: -CEPH500C2 PO
[2019-04-23 19:56] LABS: EOSINOPHILS # (AUTO) 0.1 X10'3 (0-0.9); HEMOGLOBIN 11.3 g/dl (14.0-17.9); LYMPHOCYTES # (AUTO) 1.6 X10'3 (1.1-4.8); MONOCYTES # (AUTO) 0.5 X10'3 (0-0.9); NEUTROPHILS # (AUTO) 2.9 X10'3 (1.8-7.7)
[2019-04-23 19:58] LABS: BASOPHILS # (AUTO) 0.2 X10'3 (0-0.2); BASOPHILS % (AUTO) 2.9 % (0-1); HEMATOCRIT 33.6 % (42.0-52.0); LYMPHOCYTES % (AUTO) 30.1 % (21-51); MEAN CORPUSCULAR HEMOGLOBIN 30.4 PG (27.0-31.0); MEAN CORPUSCULAR HGB CONC 33.6 g/dL (33.0-36.5); MEAN CORPUSCULAR VOLUME 90.3 FL (78-98); MEAN PLATELET VOLUME 7.8 FL (7.4-10.4); MONOCYTES % (AUTO) 9.6 % (2-12); NEUTROPHILS % (AUTO) 55.4 % (42-75); PLATELET COUNT 275 X10'3 (140-440); RED BLOOD COUNT 3.73 X10'6 (4.70-6.10); RED CELL DISTRIBUTION WIDTH 17.8 % (11.5-14.5); WHITE BLOOD COUNT 5.3 X10'3 (4.5-11.0)
[2019-04-23 20:13] LABS: ALANINE AMINOTRANSFERASE 11 U/L (12-78); ALBUMIN 2.8 G/DL (3.4-5.0); ALBUMIN/GLOBULIN RATIO 0.7 (1.1-1.5); ALKALINE PHOSPHATASE 133 IU/L (46-116); ANION GAP 10 (8-16); ASPARTATE AMINO TRANSFERASE 18 U/L (10-37); BILIRUBIN,TOTAL 0.9 MG/DL (0.1-1.0); BLOOD UREA NITROGEN 15 MG/DL (7-18); BUN/CREATININE RATIO 13.6 (5.4-32.0); CALCIUM 8.6 MG/DL (8.5-10.1); CHLORIDE 98 MMOL/L (99-107); GLUCOSE 78 MG/DL (70-104); POTASSIUM 4.1 MMOL/L (3.5-5.1); SODIUM 134 MMOL/L (135-145); TOTAL CARBON DIOXIDE 26.5 MMOL/L (24-32); TOTAL PROTEIN 6.8 G/DL (6.4-8.2); eGFR 68 ML/MIN
[2019-04-23 20:33] LABS: TOTAL CELLS COUNTED 100
[2019-04-23 20:34] LABS: PLATELET ESTIMATE NORMAL
[2019-04-23 20:35] LABS: ANISOCYTOSIS 1+
--- NOTE | 2019-04-23 21:15 | NUR ---
us set up at bedside
[2019-04-23] MEDS ORDERED: furosemide 40mg/4ml inj IV ONE (21:25)
--- NOTE | 2019-04-23 21:43 | NUR ---
ct here to take pt to ct via wheel chair
[2019-04-23 21:49] LABS: PARTIAL THROMBOPLASTIN TIME 31 SECONDS (22-32)
--- NOTE | 2019-04-23 23:00 | NUR ---
ULTRA SOUND PAGGED AGAIN
--- NOTE | 2019-04-23 23:30 | NUR ---
pt uncomfortable spoke with md vyas for discomfort he suggested placing a dale . pt is declining a dale stated he is voiding .
[2019-04-24] MEDS ORDERED: magnesium 2GM in 50ml NS 50 ML IV PRN (02:00)
[2019-04-24] MEDS ORDERED: magnesium hydroxide 30ml (MOM) UD suspension PO PRN (02:00)
[2019-04-24] MEDS ORDERED: acetaminophen 325mg tablet PO PRN (02:00)
[2019-04-24] MEDS ORDERED: ondansetron/PF 4mg/2ml inj IV PRN (02:00)
[2019-04-24] MEDS ORDERED: potassium Cl 20 mEq SR tablet PO PRN ×2 (02:00)
[2019-04-24] MEDS ORDERED: bisacodyl 10mg suppository rectal RC PRN (02:00)
[2019-04-24] MEDS ORDERED: mag hydrox/Alum hydrox/simeth 30ml oral suspension PO PRN (02:00)
[2019-04-24] MEDS ORDERED: magnesium Cl slow-release 64mg tablet PO PRN (02:00)
[2019-04-24] MEDS ORDERED: potassium CL 10mEq/100ml bag 100 ML IV PRN ×2 (02:00)
[2019-04-24] MEDS ORDERED: magnesium 4gm in 100ml NS 100 ML IV PRN (02:00)
[2019-04-24] MEDS: HYDROcodone/acetaminophen 5mg/325mg tablet PO PRN ×3 (03:00→19:16)
[2019-04-24] MEDS ORDERED: CEPH500C2 PO (03:06)
--- NOTE | 2019-04-24 03:20 | NUR ---
Received patient report from ROXANNE Singh.
[2019-04-24] MEDS ORDERED: FAMO20TA8 PO (03:29)
[2019-04-24] MEDS ORDERED: OMEP40CA13 PO (03:29)
[2019-04-24] MEDS ORDERED: PANT40TA4 PO (03:30)
[2019-04-24] MEDS ORDERED: SUCR1TAB PO (03:31)
[2019-04-24 04:00] VITALS: BP 116/84
--- NOTE | 2019-04-24 06:05 | NUR ---
Patient report given, questions answered and plan of care reviewed with ROXANNE Marti.
--- NOTE | 2019-04-24 06:30 | NUR ---
received report from sloane johnson
[2019-04-24] MEDS: K and/or MAG REPLACEMENT MC SCH ×2 (07:54→20:00)
[2019-04-24] MEDS: sucralfate 1 gm tablet PO SCH ×3 (08:04→19:16)
[2019-04-24] MEDS: docusate sod 100mg capsule PO SCH ×2 (08:05→19:15)
[2019-04-24] MEDS: famotidine 20mg tablet PO SCH ×2 (08:05→19:16)
[2019-04-24] MEDS: folic acid 1mg tablet PO SCH (08:05)
[2019-04-24] MEDS: metoprolol succinate 25mg (24-HOUR) SR. Tablet PO SCH (08:06)
[2019-04-24] MEDS: lisinopril 10 MG tablet PO SCH (08:06)
[2019-04-24] MEDS: pantoprazole 40mg Tablet.DR PO SCH (08:06)
[2019-04-24] MEDS: furosemide 40mg/4ml inj IV SCH ×2 (08:08→19:15)
[2019-04-24] MEDS: enoxaparin 40mg/0.4ml syringe SQ SCH (08:14)
--- NOTE | 2019-04-24 08:57 | NUR ---
pt in npo therefore pt not a canidate for insulin at this time, continue to monitor pt Addendum: 04/24/19 at 0857 by Neelam Spencer RN above notation does not apply to this pt
--- NOTE | 2019-04-24 09:04 | NUR ---
educated pt about deep breathing and coughing, admin pt an incentive spirometer, pt returned demo on IS, continue to educate and monitor
[2019-04-24] MEDS: diphenhydrAMINE 25mg capsule PO PRN (09:55)
[2019-04-24 10:00] VITALS: BP 114/79
--- NOTE | 2019-04-24 15:09 | NUR ---
Pt requests additional food per dietary; double eggs added to breakfast and double meats BIDLD added to meals. Addendum: 04/24/19 at [address] Amended: Links added.
[2019-04-24 18:00] VITALS: BP 102/82
--- NOTE | 2019-04-24 18:15 | NUR ---
Received patient report from
[2019-04-24] MEDS: mineral oil/petrolatum, white cream 113gm jar TP SCH (19:24)
[2019-04-24 22:00] VITALS: BP 115/77
[2019-04-25] MEDS: diphenhydrAMINE 25mg capsule PO PRN ×3 (02:49→19:30)
[2019-04-25] MEDS: sucralfate 1 gm tablet PO SCH ×4 (02:49→19:31)
[2019-04-25 06:00] VITALS: BP 101/64
--- NOTE | 2019-04-25 06:19 | NUR ---
Patient report given, questions answered and plan of care reviewed with ROXANNE Aldridge.
[2019-04-25 06:46] LABS: BASOPHILS # (AUTO) 0.1 X10'3 (0-0.2); BASOPHILS % (AUTO) 1.8 % (0-1); EOSINOPHILS # (AUTO) 0.3 X10'3 (0-0.9); EOSINOPHILS % (AUTO) 4.8 % (0-6); HEMATOCRIT 33.1 % (42.0-52.0); HEMOGLOBIN 11.1 g/dl (14.0-17.9); LYMPHOCYTES # (AUTO) 2.1 X10'3 (1.1-4.8); LYMPHOCYTES % (AUTO) 39.8 % (21-51); MEAN CORPUSCULAR HEMOGLOBIN 30.1 PG (27.0-31.0); MEAN CORPUSCULAR HGB CONC 33.4 g/dL (33.0-36.5); MEAN CORPUSCULAR VOLUME 89.9 FL (78-98); MEAN PLATELET VOLUME 7.9 FL (7.4-10.4); MONOCYTES # (AUTO) 0.6 X10'3 (0-0.9); MONOCYTES % (AUTO) 10.6 % (2-12); NEUTROPHILS # (AUTO) 2.3 X10'3 (1.8-7.7); PLATELET COUNT 273 X10'3 (140-440); RED BLOOD COUNT 3.68 X10'6 (4.70-6.10); RED CELL DISTRIBUTION WIDTH 17.4 % (11.5-14.5); WHITE BLOOD COUNT 5.3 X10'3 (4.5-11.0)
[2019-04-25 07:01] LABS: ALANINE AMINOTRANSFERASE 9 U/L (12-78); ALBUMIN 2.7 G/DL (3.4-5.0); ALBUMIN/GLOBULIN RATIO 0.7 (1.1-1.5); ALKALINE PHOSPHATASE 125 IU/L (46-116); ANION GAP 8 (8-16); ASPARTATE AMINO TRANSFERASE 21 U/L (10-37); BILIRUBIN,TOTAL 0.9 MG/DL (0.1-1.0); BLOOD UREA NITROGEN 21 MG/DL (7-18); BUN/CREATININE RATIO 18.6 (5.4-32.0); CALCIUM 8.5 MG/DL (8.5-10.1); CHLORIDE 99 MMOL/L (99-107); CREATININE 1.13 MG/DL (0.60-1.10); GLUCOSE 86 MG/DL (70-104); MAGNESIUM 1.6 MG/DL (1.5-2.4); PHOSPHORUS 4.6 MG/DL (2.3-4.5); SODIUM 134 MMOL/L (135-145); TOTAL CARBON DIOXIDE 26.9 MMOL/L (24-32); TOTAL PROTEIN 6.4 G/DL (6.4-8.2); eGFR 66 ML/MIN
[2019-04-25] MEDS: enoxaparin 40mg/0.4ml syringe SQ SCH (07:41)
[2019-04-25] MEDS: pantoprazole 40mg Tablet.DR PO SCH (07:41)
[2019-04-25] MEDS: docusate sod 100mg capsule PO SCH ×2 (07:42→19:31)
[2019-04-25] MEDS: folic acid 1mg tablet PO SCH (07:42)
[2019-04-25] MEDS: famotidine 20mg tablet PO SCH ×2 (07:42→19:31)
[2019-04-25] MEDS: mineral oil/petrolatum, white cream 113gm jar TP SCH ×2 (07:51→19:47)
[2019-04-25] MEDS: lisinopril 10 MG tablet PO SCH (08:00)
[2019-04-25] MEDS: K and/or MAG REPLACEMENT MC SCH ×2 (08:00→20:00)
[2019-04-25] MEDS: furosemide 40mg/4ml inj IV SCH ×3 (08:00→19:30)
[2019-04-25] MEDS: metoprolol succinate 25mg (24-HOUR) SR. Tablet PO SCH (08:00)
[2019-04-25 10:00] VITALS: BP 130/83
[2019-04-25] MEDS ORDERED: ceFAZolin 1GM/D5W- ADD-VANTAGE 50 ML IV ONE (16:10)
[2019-04-25 16:12] VITALS: BP 103/81
[2019-04-25 16:45] VITALS: BP 108/77
[2019-04-25 18:00] VITALS: BP 111/76
--- NOTE | 2019-04-25 18:22 | NUR ---
Problems reprioritized. Patient report given, questions answered & plan of care reviewed with Bibiana OLIVEIRA.
[2019-04-25] MEDS: HYDROcodone/acetaminophen 5mg/325mg tablet PO PRN (19:31)
--- NOTE | 2019-04-25 22:00 | NUR ---
pt c/o abd pain on left side of abd. not time for norco yet, will continue to monitor for pain. pt produces some relief with self-massage to abd.
[2019-04-25 22:12] VITALS: BP 101/70
--- NOTE | 2019-04-26 01:08 | NUR ---
reported to ROXANNE Monteiro
[2019-04-26] MEDS: sucralfate 1 gm tablet PO SCH ×4 (01:51→19:36)
[2019-04-26] MEDS: diphenhydrAMINE 25mg capsule PO PRN ×2 (01:54→19:38)
--- NOTE | 2019-04-26 03:03 | NUR ---
I have reviewed and agree with all interventions, assessments performed and documented by Santo OLIVEIRA.
[2019-04-26 06:00] VITALS: BP 115/81
--- NOTE | 2019-04-26 06:25 | NUR ---
Problems reprioritized. Patient report given, questions answered & plan of care reviewed with Oly OLIVEIRA.
[2019-04-26 07:09] LABS: BASOPHILS # (AUTO) 0.1 X10'3 (0-0.2); BASOPHILS % (AUTO) 1.3 % (0-1); EOSINOPHILS # (AUTO) 0.2 X10'3 (0-0.9); EOSINOPHILS % (AUTO) 4.3 % (0-6); HEMOGLOBIN 11.5 g/dl (14.0-17.9); LYMPHOCYTES # (AUTO) 2.3 X10'3 (1.1-4.8); LYMPHOCYTES % (AUTO) 40.5 % (21-51); MEAN CORPUSCULAR HEMOGLOBIN 29.5 PG (27.0-31.0); MEAN CORPUSCULAR HGB CONC 32.9 g/dL (33.0-36.5); MEAN CORPUSCULAR VOLUME 89.5 FL (78-98); MEAN PLATELET VOLUME 8.3 FL (7.4-10.4); MONOCYTES # (AUTO) 0.6 X10'3 (0-0.9); NEUTROPHILS # (AUTO) 2.5 X10'3 (1.8-7.7); NEUTROPHILS % (AUTO) 43.9 % (42-75); PLATELET COUNT 265 X10'3 (140-440); RED BLOOD COUNT 3.91 X10'6 (4.70-6.10); RED CELL DISTRIBUTION WIDTH 17.7 % (11.5-14.5); WHITE BLOOD COUNT 5.7 X10'3 (4.5-11.0)
[2019-04-26 07:13] LABS: ALANINE AMINOTRANSFERASE 11 U/L (12-78); ALBUMIN 2.5 G/DL (3.4-5.0); ALBUMIN/GLOBULIN RATIO 0.7 (1.1-1.5); ALKALINE PHOSPHATASE 126 IU/L (46-116); ANION GAP 6 (8-16); ASPARTATE AMINO TRANSFERASE 23 U/L (10-37); BILIRUBIN,TOTAL 0.7 MG/DL (0.1-1.0); BLOOD UREA NITROGEN 20 MG/DL (7-18); CALCIUM 8.5 MG/DL (8.5-10.1); CHLORIDE 99 MMOL/L (99-107); CREATININE 1.11 MG/DL (0.60-1.10); GLUCOSE 87 MG/DL (70-104); MAGNESIUM 1.7 MG/DL (1.5-2.4); PHOSPHORUS 4.5 MG/DL (2.3-4.5); POTASSIUM 4.1 MMOL/L (3.5-5.1); SODIUM 134 MMOL/L (135-145); TOTAL PROTEIN 6.1 G/DL (6.4-8.2); eGFR 68 ML/MIN
[2019-04-26] MEDS: docusate sod 100mg capsule PO SCH ×2 (07:49→19:40)
[2019-04-26] MEDS: folic acid 1mg tablet PO SCH (07:49)
[2019-04-26] MEDS: pantoprazole 40mg Tablet.DR PO SCH (07:49)
[2019-04-26] MEDS: famotidine 20mg tablet PO SCH ×2 (07:49→19:35)
[2019-04-26] MEDS: enoxaparin 40mg/0.4ml syringe SQ SCH (07:50)
[2019-04-26] MEDS: mineral oil/petrolatum, white cream 113gm jar TP SCH ×2 (07:50→19:40)
[2019-04-26] MEDS: metoprolol succinate 25mg (24-HOUR) SR. Tablet PO SCH (07:52)
[2019-04-26] MEDS: furosemide 40mg/4ml inj IV SCH ×2 (07:53→19:40)
[2019-04-26] MEDS: lisinopril 10 MG tablet PO SCH (07:53)
[2019-04-26] MEDS: K and/or MAG REPLACEMENT MC SCH ×2 (08:00→19:42)
[2019-04-26 09:42] VITALS: BP 112/73
[2019-04-26] MEDS: metolazone 2.5mg tablet PO SCH (11:21)
[2019-04-26] MEDS ORDERED: POTA10TA19 PO (15:22)
[2019-04-26] MEDS ORDERED: FURO40TA4 PO (15:22)
[2019-04-26] MEDS ORDERED: ZAR2.5T PO (15:22)
--- NOTE | 2019-04-26 15:45 | NUR ---
Received orders from Dr. Yanes to discharge patient when life vest arrives.
--- NOTE | 2019-04-26 16:14 | NUR ---
Spoke with Essence from life vest- waiting for echo to get reviewed. Life vest will possibly be delivered by 1800 or tomorrow morning.
[2019-04-26 18:00] VITALS: BP 103/75
--- NOTE | 2019-04-26 18:30 | NUR ---
Problems reprioritized. Patient report given, questions answered & plan of care reviewed with Santo OLIVEIRA.
[2019-04-26] MEDS: HYDROcodone/acetaminophen 5mg/325mg tablet PO PRN (19:36)
--- NOTE | 2019-04-26 19:54 | NUR ---
message sent to cisco consultant [facility] [id number]: pt Kobe Jean [id number]. pt was supposed to be d/c tonight but Zoll vest didn't come so pt. staying - IV removed earlier anticipating discharge. ok leave IV out while on tele for now-need IV lasix to PO for tonight and am
[2019-04-26] MEDS: furosemide 40mg tablet PO SCH (20:34)
[2019-04-26 22:00] VITALS: BP 110/79
[2019-04-27] MEDS: sucralfate 1 gm tablet PO SCH ×2 (02:20→07:18)
[2019-04-27 06:00] VITALS: BP 134/86
--- NOTE | 2019-04-27 06:20 | NUR ---
Patient in room ORTHO 4015. I have received report from Santo OLIVEIRA and had the opportunity to ask questions and assume patient care.
--- NOTE | 2019-04-27 06:30 | NUR ---
reported to days. noted pt awaiting zoll prior to discharge. resting w/o distress
[2019-04-27] MEDS: docusate sod 100mg capsule PO SCH (07:18)
[2019-04-27] MEDS: famotidine 20mg tablet PO SCH (07:18)
[2019-04-27] MEDS: folic acid 1mg tablet PO SCH (07:18)
[2019-04-27] MEDS: enoxaparin 40mg/0.4ml syringe SQ SCH (07:18)
[2019-04-27] MEDS: mineral oil/petrolatum, white cream 113gm jar TP SCH (07:22)
[2019-04-27] MEDS ORDERED: pantoprazole 40mg Tablet.DR PO SCH (07:30)
[2019-04-27] MEDS: K and/or MAG REPLACEMENT MC SCH (08:00)
[2019-04-27 08:08] LABS: ALANINE AMINOTRANSFERASE 10 U/L (12-78); ALBUMIN 2.5 G/DL (3.4-5.0); ALBUMIN/GLOBULIN RATIO 0.7 (1.1-1.5); ALKALINE PHOSPHATASE 135 IU/L (46-116); ANION GAP 5 (8-16); ASPARTATE AMINO TRANSFERASE 20 U/L (10-37); BILIRUBIN,TOTAL 0.7 MG/DL (0.1-1.0); BLOOD UREA NITROGEN 20 MG/DL (7-18); BUN/CREATININE RATIO 18.5 (5.4-32.0); CALCIUM 8.7 MG/DL (8.5-10.1); CHLORIDE 98 MMOL/L (99-107); CREATININE 1.08 MG/DL (0.60-1.10); GLUCOSE 83 MG/DL (70-104); MAGNESIUM 1.5 MG/DL (1.5-2.4); PHOSPHORUS 4.4 MG/DL (2.3-4.5); SODIUM 131 MMOL/L (135-145); TOTAL PROTEIN 6.2 G/DL (6.4-8.2); eGFR 70 ML/MIN
[2019-04-27 08:15] LABS: BASOPHILS # (AUTO) 0.1 X10'3 (0-0.2); BASOPHILS % (AUTO) 1.3 % (0-1); EOSINOPHILS # (AUTO) 0.3 X10'3 (0-0.9); EOSINOPHILS % (AUTO) 4.4 % (0-6); HEMATOCRIT 35.9 % (42.0-52.0); HEMOGLOBIN 11.8 g/dl (14.0-17.9); LYMPHOCYTES # (AUTO) 2.1 X10'3 (1.1-4.8); LYMPHOCYTES % (AUTO) 35.4 % (21-51); MEAN CORPUSCULAR HEMOGLOBIN 29.5 PG (27.0-31.0); MEAN CORPUSCULAR VOLUME 89.3 FL (78-98); MEAN PLATELET VOLUME 8.4 FL (7.4-10.4); MONOCYTES # (AUTO) 0.5 X10'3 (0-0.9); MONOCYTES % (AUTO) 8.7 % (2-12); NEUTROPHILS % (AUTO) 50.2 % (42-75); PLATELET COUNT 272 X10'3 (140-440); RED BLOOD COUNT 4.02 X10'6 (4.70-6.10); RED CELL DISTRIBUTION WIDTH 17.6 % (11.5-14.5)
[2019-04-27] MEDS: metoprolol succinate 25mg (24-HOUR) SR. Tablet PO SCH (08:20)
[2019-04-27] MEDS: metolazone 2.5mg tablet PO SCH (08:20)
[2019-04-27] MEDS: furosemide 40mg tablet PO SCH (08:20)
[2019-04-27] MEDS: lisinopril 10 MG tablet PO SCH (08:21)
--- NOTE | 2019-04-27 09:48 | NUR ---
Yaquelin 2108. [facility] Mr. Tompkins in room 4019F has his LifeVest, CM has been notifying [facility] for a ride. Give us a call if you need to see the pt before he goes. Thank you
[2019-04-27 10:00] VITALS: BP 105/75
--- NOTE | 2019-04-27 10:39 | NUR ---
Spoke with [facility] for pt transport. Pt will be transported to [address] [place] [address] by [facility]. ETA not provided.
--- NOTE | 2019-04-27 10:45 | NUR ---
I have reviewed the charting performed by Yaquelin Ruiz and agree with the assessment.
--- NOTE | 2019-04-27 11:21 | NUR ---
[facility] called and stated they were at the hospital to roll picker the pt. Pt wheeled down to the main entrance. All patient belongings with pt at discharge.
[2019-04-27] MEDS ORDERED: furosemide 40mg tablet PO SCH (20:05)
== END 2019-04-27 11:03 | disposition home or self-care (01) | DRG 194 ==
LOC: ER 18:25 → ED HOLD 04-24 02:00 → UNDOADMIN 04-24 02:02 → ED HOLD 04-24 02:02 → ORTHO 4S 04-24 03:36
PROVIDERS: ADMIT Family Medicine; ATTEND Internal Medicine
PROC: 0W9G3ZZ Drainage of Peritoneal Cavity, Percutaneous Approach (ICD-10-PCS; principal; 2019-04-25)
DX: I11.0 Hypertensive heart disease with heart failure (principal); J96.00 Acute respiratory failure, unspecified whether with hypoxia or hypercapnia; F12.90 Cannabis use, unspecified, uncomplicated; R18.8 Other ascites; I50.23 Acute on chronic systolic (congestive) heart failure; J44.9 Chronic obstructive pulmonary disease, unspecified; Z91.19 Patient's noncompliance with other medical treatment and regimen; Z86.73 Personal history of transient ischemic attack (TIA), and cerebral infarction without residual deficits; Z59.0 Homelessness
CPT/HCPCS: 36415; 49083; 71045; 71250; 76870; 80053; 83735; 83880; 84100; 84484; 85025; 85610; 85730; 87081; 93005; 96374; 99285; G0378; J0690; J1650; J1940; Q0163

== ENCOUNTER 2019-05-02 21:27 | Emergency (ER) | payer MEDICAID ==
[~2019-05-02] VITALS: Ht 177.8 cm; Wt 88.0 kg
[~2019-05-02 21:27] MED LIST changes: +CEPH500C2 PO; -FAMO20TA44 PO; +FAMO20TA8 PO; -LACT1CAP26 PO; -OMEP20CA15 PO; -ONDA4TAB6 PO; +SUCR1TAB PO; -SUCR1TAB34 PO; -THIA100T70 PO; +ZAR2.5T PO
[2019-05-03] MEDS ORDERED: HYDROcodone/acetaminophen 5mg/325mg tablet PO ONE (00:55)
[2019-05-03 01:12] VITALS: BP 105/74
== END 2019-05-03 01:14 | disposition home or self-care (01) ==
LOC: ER 21:27
DX: R18.8 Other ascites (principal); I50.9 Heart failure, unspecified; I11.0 Hypertensive heart disease with heart failure; F12.90 Cannabis use, unspecified, uncomplicated; Z86.73 Personal history of transient ischemic attack (TIA), and cerebral infarction without residual deficits; Z60.2 Problems related to living alone; Z59.0 Homelessness; Z56.0 Unemployment, unspecified; Z79.2 Long term (current) use of antibiotics; Z79.899 Other long term (current) drug therapy
CPT/HCPCS: 99283

== ENCOUNTER 2019-05-29 06:17 | Day surgery (SDC) | payer MEDICAID ==
[~2019-05-29] VITALS: Ht 160 cm; Wt 73.3 kg
--- NOTE | 2019-05-29 06:30 | NUR ---
Pt ambulated independently on to unit without difficulty. Pt oriented to room, including call light use.
[2019-05-29 06:40] VITALS: BP 104/67
[2019-05-29] MEDS ORDERED: normal saline 1000ml 1,000 ML IV PRN (06:40)
[2019-05-29] MEDS ORDERED: albumin 25% 100mL bottle x 1 IV PRN (06:40)
[2019-05-29] MEDS ORDERED: THIA50TA10 PO (06:41)
[2019-05-29] MEDS ORDERED: POTA10TA36 PO (06:41)
[2019-05-29] MEDS ORDERED: FURO40TA4 PO (06:41)
[2019-05-29 08:15] VITALS: BP 104/67
--- NOTE | 2019-05-29 08:35 | NUR ---
JAVIER Sewell determined by ultrasound that pt did not have sufficient amount of fluid in abdominal cavity to perform paracentesis. Procedure not performed.
--- NOTE | 2019-05-29 08:45 | NUR ---
Pt belongings, including jacket, cell phone & Life Vest monitor, gathered up and sent with pt. Pt transported to lobby via WC, in no acute distress.
== END 2019-05-29 08:45 | disposition home or self-care (01) ==
LOC: MED 3N 06:17 → SSTAY O 06:17
PROVIDERS: ATTEND Radiology Vascular & Interventional Radiology
DX: K70.31 Alcoholic cirrhosis of liver with ascites (principal); R14.0 Abdominal distension (gaseous); F10.10 Alcohol abuse, uncomplicated; F12.90 Cannabis use, unspecified, uncomplicated; I11.0 Hypertensive heart disease with heart failure; I50.9 Heart failure, unspecified; F15.90 Other stimulant use, unspecified, uncomplicated; Z86.73 Personal history of transient ischemic attack (TIA), and cerebral infarction without residual deficits; Z79.899 Other long term (current) drug therapy
CPT/HCPCS: 76705

== ENCOUNTER 2019-06-20 11:19 | Emergency (ER) | payer MEDICAID ==
[~2019-06-20] VITALS: Ht 177.8 cm; Wt 77.3 kg
[~2019-06-20 11:19] MED LIST changes: -CEPH500C2 PO; -FAMO20TA8 PO; -PANT40TA4 PO; -POTA10TA19 PO; +POTA10TA36 PO; -SUCR1TAB PO; +THIA50TA10 PO; -ZAR2.5T PO
[2019-06-20 12:17] LABS: BASOPHILS # (AUTO) 0.1 X10'3 (0-0.2); BASOPHILS % (AUTO) 1.2 % (0-1); EOSINOPHILS # (AUTO) 0.2 X10'3 (0-0.9); EOSINOPHILS % (AUTO) 4.3 % (0-6); HEMATOCRIT 36.7 % (42.0-52.0); HEMOGLOBIN 11.9 g/dl (14.0-17.9); LYMPHOCYTES # (AUTO) 1.8 X10'3 (1.1-4.8); MEAN CORPUSCULAR HEMOGLOBIN 28.1 PG (27.0-31.0); MEAN CORPUSCULAR HGB CONC 32.5 g/dL (33.0-36.5); MEAN CORPUSCULAR VOLUME 86.5 FL (78-98); MEAN PLATELET VOLUME 7.4 FL (7.4-10.4); MONOCYTES # (AUTO) 0.5 X10'3 (0-0.9); MONOCYTES % (AUTO) 9.8 % (2-12); NEUTROPHILS # (AUTO) 2.8 X10'3 (1.8-7.7); NEUTROPHILS % (AUTO) 51.7 % (42-75); PLATELET COUNT 314 X10'3 (140-440); RED BLOOD COUNT 4.24 X10'6 (4.70-6.10); RED CELL DISTRIBUTION WIDTH 16.4 % (11.5-14.5); WHITE BLOOD COUNT 5.4 X10'3 (4.5-11.0)
[2019-06-20 12:32] LABS: ALANINE AMINOTRANSFERASE 12 U/L (12-78); ALBUMIN 2.9 G/DL (3.4-5.0); ALBUMIN/GLOBULIN RATIO 0.7 (1.1-1.5); ALKALINE PHOSPHATASE 127 IU/L (46-116); ANION GAP 4 (8-16); ASPARTATE AMINO TRANSFERASE 26 U/L (10-37); BILIRUBIN,TOTAL 0.7 MG/DL (0.1-1.0); BLOOD UREA NITROGEN 15 MG/DL (7-18); CALCIUM 8.9 MG/DL (8.5-10.1); CHLORIDE 101 MMOL/L (99-107); CREATININE 0.79 MG/DL (0.60-1.10); GLUCOSE 100 MG/DL (70-104); POTASSIUM 4.3 MMOL/L (3.5-5.1); SODIUM 134 MMOL/L (135-145); TOTAL CARBON DIOXIDE 28.7 MMOL/L (24-32); TOTAL PROTEIN 6.8 G/DL (6.4-8.2); eGFR > 90 ML/MIN
[2019-06-20 12:39] LABS: LIPASE 215 U/L (73-393)
[2019-06-20] MEDS ORDERED: ketorolac trometh inj. 60 MG/2 ML VIAL IM ONE (13:15)
[2019-06-20 13:57] VITALS: BP 112/74
== END 2019-06-20 14:02 | disposition home or self-care (01) ==
LOC: ER 11:19
DX: K40.90 Unilateral inguinal hernia, without obstruction or gangrene, not specified as recurrent (principal); I11.0 Hypertensive heart disease with heart failure; I50.9 Heart failure, unspecified; Z86.73 Personal history of transient ischemic attack (TIA), and cerebral infarction without residual deficits; F12.90 Cannabis use, unspecified, uncomplicated; Z60.2 Problems related to living alone; Z59.0 Homelessness; Z56.0 Unemployment, unspecified; Z72.89 Other problems related to lifestyle; Z79.899 Other long term (current) drug therapy
CPT/HCPCS: 36415; 80053; 83690; 85025; 96372; 99284; J1885

== ENCOUNTER 2019-07-02 07:11 | Day surgery (SDC) | payer MEDICAID ==
[~2019-07-02] VITALS: Ht 177.8 cm; Wt 73.3 kg
[2019-07-02] VITALS (9 sets, daily range): BP systolic 102–125; BP diastolic 69–93
[2019-07-02] MEDS ORDERED: FURO40TA4 PO (07:47)
[2019-07-02] MEDS ORDERED: THIA50TA10 PO (07:47)
[2019-07-02] MEDS ORDERED: FOLI0.4T14 PO (07:47)
[2019-07-02] MEDS ORDERED: NALT50TA PO (07:47)
== END 2019-07-02 10:00 | disposition home or self-care (01) ==
LOC: SSTAY O 07:11
PROVIDERS: ATTEND Radiology Vascular & Interventional Radiology
DX: R18.8 Other ascites (principal); I11.0 Hypertensive heart disease with heart failure; I50.9 Heart failure, unspecified; F12.90 Cannabis use, unspecified, uncomplicated; Z86.73 Personal history of transient ischemic attack (TIA), and cerebral infarction without residual deficits; Z72.89 Other problems related to lifestyle; Z79.899 Other long term (current) drug therapy
CPT/HCPCS: 49083; C1729

== ENCOUNTER 2019-09-23 12:02 | Emergency (ER) | payer MEDICAID ==
[~2019-09-23] VITALS: Ht 177.8 cm; Wt 74.1 kg
[~2019-09-23 12:02] MED LIST changes: +FOLI0.4T14 PO; -FOLI0.4T2 PO; +NALT50TA PO
[2019-09-23] MEDS ORDERED: pantoprazole 40 MG vial IV ONE (12:30)
[2019-09-23] MEDS ORDERED: normal saline 1000ml 1,000 ML IV ONE (12:30)
[2019-09-23] MEDS ORDERED: ondansetron/PF 4mg/2ml inj IV ONE (12:30)
[2019-09-23] MEDS ORDERED: famotidine/PF 10 mg/ml inj IV ONE (12:30)
[2019-09-23] MEDS ORDERED: proCHLORperazine 10 MG/2 ml inj IV ONE (12:30)
[2019-09-23 12:36] LABS: BASOPHILS # (AUTO) 0.1 X10'3 (0-0.2); EOSINOPHILS # (AUTO) 0.1 X10'3 (0-0.9); EOSINOPHILS % (AUTO) 1.5 % (0-6); HEMOGLOBIN 12.8 g/dl (14.0-17.9); LYMPHOCYTES # (AUTO) 2.3 X10'3 (1.1-4.8); LYMPHOCYTES % (AUTO) 35.4 % (21-51); MEAN CORPUSCULAR HEMOGLOBIN 29.7 PG (27.0-31.0); MEAN CORPUSCULAR HGB CONC 32.8 g/dL (33.0-36.5); MEAN CORPUSCULAR VOLUME 90.6 FL (78-98); MEAN PLATELET VOLUME 8.5 FL (7.4-10.4); MONOCYTES # (AUTO) 0.5 X10'3 (0-0.9); MONOCYTES % (AUTO) 8.6 % (2-12); NEUTROPHILS # (AUTO) 3.4 X10'3 (1.8-7.7); NEUTROPHILS % (AUTO) 53.5 % (42-75); PLATELET COUNT 248 X10'3 (140-440); RED CELL DISTRIBUTION WIDTH 15.7 % (11.5-14.5); WHITE BLOOD COUNT 6.4 X10'3 (4.5-11.0)
[2019-09-23 12:45] LABS: ALANINE AMINOTRANSFERASE 19 U/L (12-78); ALBUMIN 3.7 G/DL (3.4-5.0); ALBUMIN/GLOBULIN RATIO 0.9 (1.1-1.5); ALKALINE PHOSPHATASE 98 IU/L (46-116); ANION GAP 10 (8-16); ASPARTATE AMINO TRANSFERASE 35 U/L (10-37); BILIRUBIN,TOTAL 1.5 MG/DL (0.1-1.0); BLOOD UREA NITROGEN 17 MG/DL (7-18); BUN/CREATININE RATIO 12.9 (5.4-32.0); CALCIUM 9.4 MG/DL (8.5-10.1); CHLORIDE 99 MMOL/L (99-107); CREATININE 1.32 MG/DL (0.60-1.10); GLUCOSE 79 MG/DL (70-104); POTASSIUM 4.6 MMOL/L (3.5-5.1); SODIUM 132 MMOL/L (135-145); TOTAL PROTEIN 7.6 G/DL (6.4-8.2); eGFR 55 ML/MIN
[2019-09-23 13:00] LABS: LIPASE 55 U/L (73-393)
[2019-09-23 13:03] LABS: ETHANOL < 0.010 GM/DL (0.0-0.010)
[2019-09-23] MEDS ORDERED: furosemide 10 MG/1 ML 10ml inj IV ONE (13:10)
[2019-09-23] MEDS ORDERED: furosemide 40mg/4ml inj IV ONE (13:15)
[2019-09-23 13:32] VITALS: BP 132/88
[2019-09-23] MEDS ORDERED: ONDA8TAB6 PO (13:48)
[2019-09-23] MEDS ORDERED: PANT-47 PO (13:48)
== END 2019-09-23 14:02 | disposition home or self-care (01) ==
LOC: ER 12:02
DX: R53.1 Weakness (principal); R11.2 Nausea with vomiting, unspecified; M54.5 Low back pain; I50.9 Heart failure, unspecified; I11.0 Hypertensive heart disease with heart failure; F12.90 Cannabis use, unspecified, uncomplicated; Z86.73 Personal history of transient ischemic attack (TIA), and cerebral infarction without residual deficits; Z60.2 Problems related to living alone; Z59.0 Homelessness; Z56.0 Unemployment, unspecified; Z79.899 Other long term (current) drug therapy
CPT/HCPCS: 36415; 71045; 80053; 80320; 83690; 83880; 84484; 85025; 93005; 96361; 96374; 96375; 99285; C9113; J0780; J1940; J2405; J3490; J7030

== ENCOUNTER 2019-10-15 17:18 | Emergency (ER) | payer MEDICAID ==
[~2019-10-15] VITALS: Ht 177.8 cm; Wt 74.1 kg
[~2019-10-15 17:18] MED LIST changes: +ONDA8TAB6 PO; +PANT-47 PO
[2019-10-15] MEDS ORDERED: ondansetron/PF 4mg/2ml inj IV ONE (17:45)
[2019-10-15] MEDS ORDERED: morphine 4 MG/ML inj SYRINge IV PRN (17:45)
[2019-10-15] MEDS ORDERED: normal saline 1000ML IV soln IVB ONE (17:45)
[2019-10-15] MEDS: diatr meglu/diatrizoate 30ml oral sol.-(3 dose) bottle PO SCH ×3 (17:59→19:32)
[2019-10-15 18:04] LABS: BASOPHILS # (AUTO) 0.1 X10'3 (0-0.2); BASOPHILS % (AUTO) 1.1 % (0-1); EOSINOPHILS # (AUTO) 0.2 X10'3 (0-0.9); EOSINOPHILS % (AUTO) 2.8 % (0-6); HEMATOCRIT 34.9 % (42.0-52.0); HEMOGLOBIN 11.2 g/dl (14.0-17.9); LYMPHOCYTES # (AUTO) 2.6 X10'3 (1.1-4.8); LYMPHOCYTES % (AUTO) 37.2 % (21-51); MEAN CORPUSCULAR HEMOGLOBIN 28.5 PG (27.0-31.0); MEAN CORPUSCULAR HGB CONC 32.2 g/dL (33.0-36.5); MEAN CORPUSCULAR VOLUME 88.7 FL (78-98); MEAN PLATELET VOLUME 8.3 FL (7.4-10.4); MONOCYTES # (AUTO) 0.4 X10'3 (0-0.9); MONOCYTES % (AUTO) 5.3 % (2-12); NEUTROPHILS # (AUTO) 3.7 X10'3 (1.8-7.7); NEUTROPHILS % (AUTO) 53.6 % (42-75); PLATELET COUNT 275 X10'3 (140-440); RED BLOOD COUNT 3.94 X10'6 (4.70-6.10); RED CELL DISTRIBUTION WIDTH 15.6 % (11.5-14.5); WHITE BLOOD COUNT 6.9 X10'3 (4.5-11.0)
[2019-10-15 18:22] LABS: ALANINE AMINOTRANSFERASE 14 U/L (12-78); ALBUMIN 3.2 G/DL (3.4-5.0); ALBUMIN/GLOBULIN RATIO 0.9 (1.1-1.5); ALKALINE PHOSPHATASE 102 IU/L (46-116); ANION GAP 9 (8-16); ASPARTATE AMINO TRANSFERASE 22 U/L (10-37); BILIRUBIN,TOTAL 0.8 MG/DL (0.1-1.0); BLOOD UREA NITROGEN 19 MG/DL (7-18); BUN/CREATININE RATIO 14.4 (5.4-32.0); CALCIUM 8.5 MG/DL (8.5-10.1); CHLORIDE 100 MMOL/L (99-107); CREATININE 1.32 MG/DL (0.60-1.10); GLUCOSE 97 MG/DL (70-104); POTASSIUM 3.6 MMOL/L (3.5-5.1); SODIUM 134 MMOL/L (135-145); TOTAL CARBON DIOXIDE 24.8 MMOL/L (24-32); TOTAL PROTEIN 6.8 G/DL (6.4-8.2); eGFR 55 ML/MIN
--- NOTE | 2019-10-15 19:34 | NUR ---
called ct and they said to give pt the last dose of gastrografin, for ct scan
--- NOTE | 2019-10-15 19:36 | NUR ---
pt to ct via wheel chair wih ct
[2019-10-15] MEDS ORDERED: furosemide 10 MG/1 ML 10ml inj IV ONE (20:20)
[2019-10-15] MEDS ORDERED: HYDR-4383 PO (20:24)
[2019-10-15 20:37] VITALS: BP 113/84
== END 2019-10-15 20:40 | disposition home or self-care (01) ==
LOC: ER 17:19
DX: K40.90 Unilateral inguinal hernia, without obstruction or gangrene, not specified as recurrent (principal); K42.9 Umbilical hernia without obstruction or gangrene; I11.0 Hypertensive heart disease with heart failure; I50.9 Heart failure, unspecified; F12.90 Cannabis use, unspecified, uncomplicated; Z86.73 Personal history of transient ischemic attack (TIA), and cerebral infarction without residual deficits; Z60.2 Problems related to living alone; Z59.0 Homelessness; Z56.0 Unemployment, unspecified; Z72.89 Other problems related to lifestyle; Z79.899 Other long term (current) drug therapy
CPT/HCPCS: 36415; 74176; 80053; 85025; 96361; 96374; 96375; 99285; J1940; J2270; J2405; J7030; Q9963; 99284

== ENCOUNTER 2019-11-07 11:43 | Emergency (ER) | payer MEDICAID ==
[~2019-11-07] VITALS: Ht 177.8 cm; Wt 79.0 kg
[~2019-11-07 11:43] MED LIST changes: +HYDR-4383 PO
[2019-11-07] MEDS ORDERED: TRAM50TA2 PO (15:08)
[2019-11-07] MEDS ORDERED: traMADol 50MG tablet PO ONE (15:10)
[2019-11-07 15:52] VITALS: BP 118/85
== END 2019-11-07 15:56 | disposition home or self-care (01) ==
LOC: ER 11:44
DX: R18.8 Other ascites (principal); K42.9 Umbilical hernia without obstruction or gangrene; I11.0 Hypertensive heart disease with heart failure; I50.9 Heart failure, unspecified; F12.90 Cannabis use, unspecified, uncomplicated; Z86.73 Personal history of transient ischemic attack (TIA), and cerebral infarction without residual deficits; Z60.2 Problems related to living alone; Z59.0 Homelessness; Z56.0 Unemployment, unspecified; Z79.899 Other long term (current) drug therapy
CPT/HCPCS: 99283

== ENCOUNTER 2019-11-13 03:33 | Emergency (ER) | payer MEDICAID ==
[~2019-11-13] VITALS: Ht 177.8 cm; Wt 65.0 kg
[~2019-11-13 03:33] MED LIST changes: +TRAM50TA2 PO
[2019-11-13] MEDS ORDERED: normal saline 1000ML IV soln IVB ONE (05:10)
[2019-11-13] MEDS ORDERED: ondansetron/PF 4mg/2ml inj IV ONE (05:10)
[2019-11-13 05:37] LABS: BASOPHILS # (AUTO) 0.1 X10'3 (0-0.2); BASOPHILS % (AUTO) 1.1 % (0-1); EOSINOPHILS # (AUTO) 0.1 X10'3 (0-0.9); EOSINOPHILS % (AUTO) 1.5 % (0-6); HEMATOCRIT 37.1 % (42.0-52.0); HEMOGLOBIN 12.2 g/dl (14.0-17.9); LYMPHOCYTES # (AUTO) 1.9 X10'3 (1.1-4.8); LYMPHOCYTES % (AUTO) 30.4 % (21-51); MEAN CORPUSCULAR HEMOGLOBIN 28.3 PG (27.0-31.0); MEAN PLATELET VOLUME 8.4 FL (7.4-10.4); MONOCYTES # (AUTO) 0.5 X10'3 (0-0.9); MONOCYTES % (AUTO) 7.9 % (2-12); NEUTROPHILS # (AUTO) 3.7 X10'3 (1.8-7.7); NEUTROPHILS % (AUTO) 59.1 % (42-75); PLATELET COUNT 250 X10'3 (140-440); RED BLOOD COUNT 4.31 X10'6 (4.70-6.10); RED CELL DISTRIBUTION WIDTH 16.1 % (11.5-14.5); WHITE BLOOD COUNT 6.3 X10'3 (4.5-11.0)
[2019-11-13 05:58] LABS: ALANINE AMINOTRANSFERASE 17 U/L (12-78); ALBUMIN 3.1 G/DL (3.4-5.0); ALBUMIN/GLOBULIN RATIO 0.8 (1.1-1.5); ALKALINE PHOSPHATASE 116 IU/L (46-116); ANION GAP 7 (8-16); ASPARTATE AMINO TRANSFERASE 26 U/L (10-37); BILIRUBIN,TOTAL 1.2 MG/DL (0.1-1.0); BLOOD UREA NITROGEN 16 MG/DL (7-18); CALCIUM 8.8 MG/DL (8.5-10.1); CHLORIDE 95 MMOL/L (99-107); CREATININE 1.14 MG/DL (0.60-1.10); GLUCOSE 97 MG/DL (70-104); LIPASE 68 U/L (73-393); POTASSIUM 3.8 MMOL/L (3.5-5.1); SODIUM 130 MMOL/L (135-145); TOTAL CARBON DIOXIDE 28.5 MMOL/L (24-32); TOTAL PROTEIN 6.9 G/DL (6.4-8.2); eGFR 65 ML/MIN
[2019-11-13] MEDS ORDERED: morphine 4 MG/ML inj SYRINge IV ONE (06:25)
[2019-11-13 07:36] VITALS: BP 121/85
[2019-11-13] MEDS ORDERED: SUCR1TAB PO (08:52)
== END 2019-11-13 07:39 | disposition home or self-care (01) ==
LOC: ER 03:34
DX: K43.9 Ventral hernia without obstruction or gangrene (principal); R18.8 Other ascites; I11.0 Hypertensive heart disease with heart failure; I50.9 Heart failure, unspecified; F12.90 Cannabis use, unspecified, uncomplicated; Z59.0 Homelessness; Z60.2 Problems related to living alone; Z56.0 Unemployment, unspecified; Z72.89 Other problems related to lifestyle; Z86.73 Personal history of transient ischemic attack (TIA), and cerebral infarction without residual deficits; Z79.899 Other long term (current) drug therapy
CPT/HCPCS: 36415; 80053; 82140; 83605; 83690; 85025; 87040; 96361; 96374; 99283; J2405; J7030

== ENCOUNTER 2019-11-13 08:06 | Day surgery (SDC) | payer MEDICAID ==
[~2019-11-13] VITALS: Ht 177.8 cm; Wt 79.6 kg
[2019-11-13] VITALS (9 sets, daily range): BP systolic 101–119; BP diastolic 75–83
[2019-11-13] MEDS ORDERED: albumin 25% 100mL bottle x 1 IV PRN (08:45)
[2019-11-13] MEDS ORDERED: SUCR1TAB PO (08:52)
== END 2019-11-13 11:00 | disposition home or self-care (01) ==
LOC: SSTAY O 08:06
PROVIDERS: ATTEND Radiology Vascular & Interventional Radiology
DX: R18.8 Other ascites (principal); I11.0 Hypertensive heart disease with heart failure; I50.9 Heart failure, unspecified; D64.9 Anemia, unspecified; F12.90 Cannabis use, unspecified, uncomplicated; Z79.899 Other long term (current) drug therapy; Z72.89 Other problems related to lifestyle; Z86.73 Personal history of transient ischemic attack (TIA), and cerebral infarction without residual deficits
CPT/HCPCS: 49083; P9047

== ENCOUNTER 2019-11-22 13:38 | Emergency (ER) | payer MEDICAID ==
[~2019-11-22] VITALS: Ht 177.8 cm; Wt 75.0 kg
[~2019-11-22 13:38] MED LIST changes: -HYDR-4383 PO; -ONDA8TAB6 PO; -PANT-47 PO; +SUCR1TAB PO; -THIA50TA10 PO; -TRAM50TA2 PO
[2019-11-22 14:07] VITALS: BP 124/81
[2019-11-22] MEDS ORDERED: TRAM50TA2 PO (14:44)
== END 2019-11-22 14:53 | disposition home or self-care (01) ==
LOC: ER 13:38
DX: K42.9 Umbilical hernia without obstruction or gangrene (principal); G89.29 Other chronic pain; R11.10 Vomiting, unspecified; I11.0 Hypertensive heart disease with heart failure; I50.9 Heart failure, unspecified; F12.90 Cannabis use, unspecified, uncomplicated; Z86.73 Personal history of transient ischemic attack (TIA), and cerebral infarction without residual deficits; Z60.2 Problems related to living alone; Z59.0 Homelessness; Z56.0 Unemployment, unspecified; Z72.89 Other problems related to lifestyle; Z79.899 Other long term (current) drug therapy
CPT/HCPCS: 99283

== ENCOUNTER 2019-11-27 07:05 | Day surgery (SDC) | payer MEDICAID ==
[2019-11-27] VITALS (7 sets, daily range): BP systolic 119–123; BP diastolic 83–92
[~2019-11-27] VITALS: Ht 177.8 cm; Wt 78.0 kg
[~2019-11-27 07:05] MED LIST changes: +TRAM50TA2 PO
[2019-11-27] MEDS ORDERED: albumin 25% 100mL bottle x 1 IV PRN (07:20)
[2019-11-27] MEDS ORDERED: TRAM50TA2 PO (07:28)
[2019-11-27] MEDS ORDERED: pneumococcal 23-VAL P-sac vacc 25 mcg/0.5ml vial IMVAC ONE (08:00)
[2019-11-27] MEDS ORDERED: FLU VACC QS2020-21(6MOS UP)/PF 60 MCG/0.5 ML SYRINGE IMVAC ONE ×2 (08:00→08:12)
== END 2019-11-27 10:05 | disposition home or self-care (01) ==
LOC: SSTAY O 07:05
PROVIDERS: ATTEND Radiology Vascular & Interventional Radiology
DX: R18.8 Other ascites (principal); I11.0 Hypertensive heart disease with heart failure; I50.9 Heart failure, unspecified; D64.9 Anemia, unspecified; Z86.73 Personal history of transient ischemic attack (TIA), and cerebral infarction without residual deficits; Z72.89 Other problems related to lifestyle; F12.90 Cannabis use, unspecified, uncomplicated; Z79.899 Other long term (current) drug therapy; Z23 Encounter for immunization
CPT/HCPCS: 49083; 90471; Q2039

== ENCOUNTER 2019-12-10 07:11 | Day surgery (SDC) | payer MEDICAID ==
[~2019-12-10] VITALS: Ht 177.8 cm; Wt 82.7 kg
[2019-12-10] MEDS ORDERED: albumin 25% 100mL bottle x 1 IV PRN (07:35)
[2019-12-10] MEDS ORDERED: normal saline 1000ml 1,000 ML IV PRN (07:35)
[2019-12-10 08:45] VITALS: BP 123/82
[2019-12-10 09:07] VITALS: BP 118/71
[2019-12-10 09:15] VITALS: BP 111/78
[2019-12-10 09:30] VITALS: BP 100/79
[2019-12-10 10:07] LABS: TOTAL PROTEIN,BODY FLUID 3.1 G/DL
[2019-12-10 10:39] LABS: BFAPPEAR HAZY
[2019-12-10 10:40] LABS: BF MESOTHELIAL CELLS MODERATE; BF RBC COUNT 1800 /CU MM; BF WBC COUNT 260 /CU MM (0-1000); BFCOLOR YELLOW; BFVOLUME 60 ML; LYMPHOCYTES,BODY FLUID 82 %; MONOCYTES,BODY FLUID 5 %; NEUTROPHILS,BODY FLUID 13 %
== END 2019-12-10 10:00 | disposition home or self-care (01) ==
LOC: SSTAY O 07:11
PROVIDERS: ATTEND Radiology Vascular & Interventional Radiology
DX: R18.8 Other ascites (principal); I11.0 Hypertensive heart disease with heart failure; I50.9 Heart failure, unspecified; D64.9 Anemia, unspecified; Z72.89 Other problems related to lifestyle; F12.90 Cannabis use, unspecified, uncomplicated; Z79.899 Other long term (current) drug therapy; Z86.73 Personal history of transient ischemic attack (TIA), and cerebral infarction without residual deficits
CPT/HCPCS: 49083; 84157; 87070; 89051

== ENCOUNTER 2019-12-28 09:44 | Emergency (ER) | payer MEDICAID ==
[~2019-12-28] VITALS: Ht 177.8 cm; Wt 77.0 kg
--- NOTE | 2019-12-28 10:54 | NUR ---
Dr. Wong is preparing to perform a paracentesis for the patient at this time.
[2019-12-28] MEDS ORDERED: famotidine 20mg tablet PO ONE (11:20)
[2019-12-28] MEDS ORDERED: mag hydrox/Alum hydrox/simeth 30ml oral suspension PO ONE (11:20)
[2019-12-28] MEDS ORDERED: pantoprazole 40mg Tablet.DR PO ONE (11:20)
[2019-12-28] MEDS ORDERED: ondansetron 4mg rapidly disintigrating tab PO ONE (11:20)
[2019-12-28] MEDS ORDERED: ibuprofen tablet 400 MG TABLET PO ONE (11:40)
[2019-12-28] MEDS ORDERED: FAMO-128 PO (11:41)
[2019-12-28] MEDS ORDERED: ONDA4TAB6 PO (11:41)
[2019-12-28 12:06] VITALS: BP 112/93
== END 2019-12-28 12:09 | disposition home or self-care (01) ==
LOC: ER 09:45
DX: R18.8 Other ascites (principal); I10 Essential (primary) hypertension; F12.10 Cannabis abuse, uncomplicated; I11.0 Hypertensive heart disease with heart failure; I63.9 Cerebral infarction, unspecified; K46.9 Unspecified abdominal hernia without obstruction or gangrene; Z59.0 Homelessness; Z56.0 Unemployment, unspecified; Z79.899 Other long term (current) drug therapy
CPT/HCPCS: 49083; 99284; 99285

== ENCOUNTER 2019-12-28 15:12 | Emergency (ER) | payer MEDICAID ==
[~2019-12-28] VITALS: Ht 177.8 cm; Wt 77.0 kg
[~2019-12-28 15:12] MED LIST changes: +FAMO-128 PO; +ONDA4TAB6 PO
[2019-12-28 15:13] VITALS: BP 123/84
--- NOTE | 2019-12-28 15:42 | NUR ---
PT HAS FLUID LEAKING ON TO HIS SHIRT, DRESSING INTACT DRAINING FROM BOTTOM OF DRESSING. DRESSING REMOVED, BULKY DRESSING TAPPED IN PLACE.
== END 2019-12-28 17:08 | disposition home or self-care (01) ==
LOC: ER 15:17
DX: T81.89XD Other complications of procedures, not elsewhere classified, subsequent encounter (principal); I11.0 Hypertensive heart disease with heart failure; I50.9 Heart failure, unspecified; F12.90 Cannabis use, unspecified, uncomplicated; Z86.73 Personal history of transient ischemic attack (TIA), and cerebral infarction without residual deficits; Z72.89 Other problems related to lifestyle; Z60.2 Problems related to living alone; Z56.0 Unemployment, unspecified; Z59.0 Homelessness; Z79.899 Other long term (current) drug therapy; X58.XXXD Exposure to other specified factors, subsequent encounter
CPT/HCPCS: 99281

== ENCOUNTER 2020-01-31 08:23 | Day surgery (SDC) | payer MEDICAID ==
[2020-01-31] VITALS (9 sets, daily range): BP systolic 109–127; BP diastolic 57–91
[~2020-01-31] VITALS: Ht 177.8 cm; Wt 83.2 kg
[2020-01-31] MEDS ORDERED: albumin 25% 100mL bottle x 1 IV PRN (08:40)
[2020-01-31] MEDS ORDERED: FAMO20TA8 PO (08:45)
[2020-01-31] MEDS ORDERED: ONDA4TAB6 PO (08:46)
== END 2020-01-31 11:40 | disposition home or self-care (01) ==
LOC: SSTAY O 08:23
PROVIDERS: ATTEND Radiology Diagnostic Radiology
DX: R18.8 Other ascites (principal); I11.0 Hypertensive heart disease with heart failure; I50.9 Heart failure, unspecified; D64.9 Anemia, unspecified; Z72.89 Other problems related to lifestyle; F12.90 Cannabis use, unspecified, uncomplicated; Z86.73 Personal history of transient ischemic attack (TIA), and cerebral infarction without residual deficits; Z79.899 Other long term (current) drug therapy
CPT/HCPCS: 49083

== ENCOUNTER 2020-02-23 07:21 | Inpatient (IN) | payer MEDICAID ==
[~2020-02-23] VITALS: Ht 177.8 cm; Wt 77.9 kg
[~2020-02-23 07:21] MED LIST changes: -FAMO-128 PO; +FAMO20TA8 PO
[2020-02-23] MEDS ORDERED: albumin (human) 25% 100 ML IV solution IV ONE (07:50)
[2020-02-23] MEDS ORDERED: furosemide 40mg/4ml inj IV ONE (07:50)
[2020-02-23 09:53] LABS: BASOPHILS % (AUTO) 0.8 % (0-1); EOSINOPHILS # (AUTO) 0.1 X10'3 (0-0.9); HEMATOCRIT 40.9 % (42.0-52.0); HEMOGLOBIN 13.3 g/dl (14.0-17.9); LYMPHOCYTES # (AUTO) 1.9 X10'3 (1.1-4.8); LYMPHOCYTES % (AUTO) 37.4 % (21-51); MEAN CORPUSCULAR HEMOGLOBIN 29.5 PG (27.0-31.0); MEAN CORPUSCULAR HGB CONC 32.5 g/dL (33.0-36.5); MEAN CORPUSCULAR VOLUME 90.6 FL (78-98); MEAN PLATELET VOLUME 9.2 FL (7.4-10.4); MONOCYTES # (AUTO) 0.3 X10'3 (0-0.9); MONOCYTES % (AUTO) 6.8 % (2-12); NEUTROPHILS # (AUTO) 2.7 X10'3 (1.8-7.7); PLATELET COUNT 260 X10'3 (140-440); RED BLOOD COUNT 4.52 X10'6 (4.70-6.10); WHITE BLOOD COUNT 5.1 X10'3 (4.5-11.0)
[2020-02-23 10:04] LABS: PARTIAL THROMBOPLASTIN TIME 28 SECONDS (22-32)
[2020-02-23 10:14] LABS: ALANINE AMINOTRANSFERASE 18 U/L (12-78); ALBUMIN 2.3 G/DL (3.4-5.0); ALBUMIN/GLOBULIN RATIO 0.5 (1.1-1.5); ALKALINE PHOSPHATASE 133 IU/L (46-116); ANION GAP 10 (8-16); ASPARTATE AMINO TRANSFERASE 26 U/L (10-37); BLOOD UREA NITROGEN 18 MG/DL (7-18); BUN/CREATININE RATIO 14.9 (5.4-32.0); CALCIUM 8.6 MG/DL (8.5-10.1); CHLORIDE 103 MMOL/L (99-107); CREATININE 1.21 MG/DL (0.60-1.10); GLUCOSE 99 MG/DL (70-104); POTASSIUM 4.2 MMOL/L (3.5-5.1); SODIUM 139 MMOL/L (135-145); TOTAL CARBON DIOXIDE 26.1 MMOL/L (24-32); TOTAL PROTEIN 6.7 G/DL (6.4-8.2); eGFR 61 ML/MIN
--- NOTE | 2020-02-23 10:37 | NUR ---
Paracentesis completed at bedside. Output 2.5 bottles of fluid.
[2020-02-23] MEDS ORDERED: magnesium 2GM in 50ml NS 50 ML IV PRN (12:35)
[2020-02-23] MEDS ORDERED: magnesium 4gm in 100ml NS 100 ML IV PRN (12:35)
[2020-02-23] MEDS ORDERED: potassium Cl 40MEQ/1/2NS 520ml 520 ML IV PRN ×2 (12:35)
[2020-02-23] MEDS ORDERED: morphine 2 MG/ML inj. syringe IV PRN (12:35)
[2020-02-23] MEDS ORDERED: potassium Cl 20 mEq SR tablet PO PRN ×2 (12:35)
[2020-02-23] MEDS ORDERED: ipratropium/albuterol 3ml nebule NEB PRN ×2 (12:35)
[2020-02-23] MEDS ORDERED: ondansetron/PF 4mg/2ml inj IV PRN (12:35)
[2020-02-23] MEDS ORDERED: acetaminophen 325mg tablet PO PRN (12:35)
[2020-02-23] MEDS ORDERED: magnesium Cl slow-release 64mg tablet PO PRN (12:35)
--- NOTE | 2020-02-23 16:56 | NUR ---
Patient in room ED 4. I have received report from BRUNO OLIVEIRA and had the opportunity to ask questions and assume patient care.
[2020-02-23 18:00] VITALS: BP 99/68
--- NOTE | 2020-02-23 18:32 | NUR ---
Patient in room PCU 3026. I have received report from Nasrin OLIVEIRA and had the opportunity to ask questions and assume patient care.
--- NOTE | 2020-02-23 18:37 | NUR ---
Problems reprioritized. Patient report given, questions answered & plan of care reviewed with TRENTON OLIVEIRA.
[2020-02-23] MEDS: K and/or MAG REPLACEMENT MC SCH (20:00)
[2020-02-23] MEDS: furosemide 10 MG/1 ML 10ml inj IV SCH (21:39)
[2020-02-23] MEDS: docusate sod 100mg capsule PO SCH (21:41)
[2020-02-23] MEDS: heparin, porcine 5000 units/ml vial SQ SCH (21:43)
[2020-02-23 22:00] VITALS: BP 99/62
[2020-02-24 02:00] VITALS: BP 104/70
[2020-02-24 06:22] LABS: BASOPHILS % (AUTO) 0.8 % (0-1); EOSINOPHILS % (AUTO) 0.8 % (0-6); HEMATOCRIT 38.2 % (42.0-52.0); HEMOGLOBIN 12.7 g/dl (14.0-17.9); LYMPHOCYTES # (AUTO) 1.6 X10'3 (1.1-4.8); LYMPHOCYTES % (AUTO) 29.8 % (21-51); MEAN CORPUSCULAR HEMOGLOBIN 29.4 PG (27.0-31.0); MEAN CORPUSCULAR HGB CONC 33.2 g/dL (33.0-36.5); MEAN CORPUSCULAR VOLUME 88.6 FL (78-98); MEAN PLATELET VOLUME 9.3 FL (7.4-10.4); MONOCYTES # (AUTO) 0.5 X10'3 (0-0.9); MONOCYTES % (AUTO) 9.4 % (2-12); NEUTROPHILS # (AUTO) 3.3 X10'3 (1.8-7.7); NEUTROPHILS % (AUTO) 59.2 % (42-75); PLATELET COUNT 207 X10'3 (140-440); RED BLOOD COUNT 4.31 X10'6 (4.70-6.10); RED CELL DISTRIBUTION WIDTH 17.9 % (11.5-14.5); WHITE BLOOD COUNT 5.5 X10'3 (4.5-11.0)
--- NOTE | 2020-02-24 06:32 | NUR ---
Patient in room PCU 3026. I have received report from Caryl OLIVEIRA and had the opportunity to ask questions and assume patient care.
--- NOTE | 2020-02-24 06:37 | NUR ---
Problems reprioritized. Patient report given, questions answered & plan of care reviewed with SIERRA OLIVEIRA.
[2020-02-24 06:48] LABS: ALBUMIN 2.4 G/DL (3.4-5.0); ANION GAP 9 (8-16); BLOOD UREA NITROGEN 22 MG/DL (7-18); BUN/CREATININE RATIO 16.8 (5.4-32.0); CALCIUM 8.1 MG/DL (8.5-10.1); CHLORIDE 104 MMOL/L (99-107); CREATININE 1.31 MG/DL (0.60-1.10); GLUCOSE 93 MG/DL (70-104); MAGNESIUM 1.7 MG/DL (1.5-2.4); POTASSIUM 3.7 MMOL/L (3.5-5.1); SODIUM 139 MMOL/L (135-145); TOTAL CARBON DIOXIDE 25.7 MMOL/L (24-32); eGFR 56 ML/MIN
[2020-02-24 07:00] VITALS: BP 91/59
[2020-02-24] MEDS: K and/or MAG REPLACEMENT MC SCH ×2 (07:41→19:50)
[2020-02-24] MEDS: docusate sod 100mg capsule PO SCH ×2 (07:41→22:31)
[2020-02-24] MEDS: furosemide 10 MG/1 ML 10ml inj IV SCH ×2 (07:41→22:38)
[2020-02-24] MEDS: heparin, porcine 5000 units/ml vial SQ SCH ×2 (07:42→19:52)
[2020-02-24 11:00] VITALS: BP 91/68
--- NOTE | 2020-02-24 14:19 | NUR ---
Malnutrition Consult: Pt admit DX hydrothorax s/p thoracentesis and cirrhosis w/ ascites per MD note. Hx heavy etoh; RD d/w RN regarding routine thiamin, folic, MVI if MD agreeable. Pt has no strength assessment at this time, no significant edema noted, no wt amount reported in malnutrition assessment per EMR, and PO 75% avg first heart healthy meal. Pt also appears well-nourished per ER note; does not meet minimum malnutrition criteria at this time. To f/u 02/27 for initial assessment. Addendum: 02/24/20 at [address] Amended: Links added.
[2020-02-24 15:00] VITALS: BP 100/83
[2020-02-24 18:00] VITALS: BP 98/74
--- NOTE | 2020-02-24 18:00 | NUR ---
Problems reprioritized. Patient report given, questions answered & plan of care reviewed with Sapphire OLIVEIRA. Addendum: 02/24/20 at 1843 by Graciela Fountain RN patient report given to Jun OLIVEIRA
[2020-02-24 22:00] VITALS: BP 102/84
--- NOTE | 2020-02-25 06:32 | NUR ---
Patient in room PCU 3026. I have received report from Jun OLIVEIRA and had the opportunity to ask questions and assume patient care.
[2020-02-25 06:42] LABS: BASOPHILS % (AUTO) 0.7 % (0-1); HEMATOCRIT 37.6 % (42.0-52.0); HEMOGLOBIN 12.3 g/dl (14.0-17.9); LYMPHOCYTES # (AUTO) 1.4 X10'3 (1.1-4.8); MEAN CORPUSCULAR HGB CONC 32.7 g/dL (33.0-36.5); MEAN CORPUSCULAR VOLUME 88.7 FL (78-98); MEAN PLATELET VOLUME 8.6 FL (7.4-10.4); MONOCYTES # (AUTO) 0.4 X10'3 (0-0.9); MONOCYTES % (AUTO) 9.3 % (2-12); NEUTROPHILS # (AUTO) 2.8 X10'3 (1.8-7.7); PLATELET COUNT 198 X10'3 (140-440); RED BLOOD COUNT 4.24 X10'6 (4.70-6.10); RED CELL DISTRIBUTION WIDTH 17.7 % (11.5-14.5); WHITE BLOOD COUNT 4.7 X10'3 (4.5-11.0)
[2020-02-25 06:55] LABS: ALBUMIN 2.1 G/DL (3.4-5.0); ANION GAP 10 (8-16); BLOOD UREA NITROGEN 24 MG/DL (7-18); BUN/CREATININE RATIO 19.2 (5.4-32.0); CALCIUM 7.9 MG/DL (8.5-10.1); CHLORIDE 102 MMOL/L (99-107); CREATININE 1.25 MG/DL (0.60-1.10); GLUCOSE 85 MG/DL (70-104); MAGNESIUM 1.6 MG/DL (1.5-2.4); POTASSIUM 3.2 MMOL/L (3.5-5.1); SODIUM 139 MMOL/L (135-145); TOTAL CARBON DIOXIDE 26.8 MMOL/L (24-32); eGFR 59 ML/MIN
[2020-02-25 07:00] VITALS: BP 126/71
[2020-02-25] MEDS: docusate sod 100mg capsule PO SCH (07:50)
[2020-02-25] MEDS: furosemide 10 MG/1 ML 10ml inj IV SCH (07:50)
[2020-02-25] MEDS: heparin, porcine 5000 units/ml vial SQ SCH (07:51)
[2020-02-25] MEDS: K and/or MAG REPLACEMENT MC SCH (07:51)
[2020-02-25] MEDS ORDERED: traMADol 50MG tablet PO PRN (10:40)
[2020-02-25] MEDS ORDERED: lisinopril 10 MG tablet PO SCH (10:40)
[2020-02-25] MEDS ORDERED: metoprolol succinate 25mg (24-HOUR) SR. Tablet PO SCH (10:40)
[2020-02-25] MEDS ORDERED: folic acid 1mg tablet PO SCH (10:40)
[2020-02-25 10:50] VITALS: BP 94/70
[2020-02-25] MEDS ORDERED: ondansetron 4mg rapidly disintigrating tab PO PRN (10:50)
[2020-02-25 11:04] VITALS: BP 84/61
[2020-02-25] MEDS ORDERED: sucralfate 1 gm tablet PO SCH (12:00)
--- NOTE | 2020-02-25 15:52 | NUR ---
pt was dc to home and picked up by his girlfriend. PIV was removed with cannula intact. now new RX. DC instructions were reviewed with patient and he verbalized understanding of all instruction as well as education on warning s/s and when to seek medical help. Patient alert, oriented, and appropriate at this time.
[2020-02-25] MEDS ORDERED: furosemide 40mg tablet PO SCH (20:00)
[2020-02-25] MEDS ORDERED: famotidine 20mg tablet PO SCH (20:00)
[2020-02-26] MEDS ORDERED: potassium chloride 10mEq ER tablet PO SCH (08:00)
[2020-02-26] MEDS ORDERED: naltrexone 50mg tablet PO SCH (08:00)
--- NOTE | 2020-02-26 15:35 | NUR ---
CASE MANAGEMENT DISCHARGE FOLLOW UP: Spoke with pt via telephone. Pt reports that he is feeling better after his discharge, however his umbilical hernia is larger. Verbalizes understanding of s/sx requiring further evaluation/emergent assistance. Pt understands that he will need another paracentesis in 2 weeks time but is unsure of how to set up appointment, will follow up with his PCP. Pt states that he does have an appt with his PCP in April, not sure if he can get an appointment any sooner. Will contact his PCP to facilitate an earlier appt. Pt expresses frustration at not being able to have hernia repair due to chronic ETOH, stating that he does not drink that much, "I haven't even had a drink yet today." States when he talks to PCP regarding getting procedure she asks him if he's stopped drinking yet; due to chronic ETOH not able to get procedure. Advised pt to discuss this with his PCP. Pt has no new medications. Pt states no further questions/concerns at this time. 1610 Able to get a hold of [facility] at this time. They will get pt's records from this most recent admission and then call pt to set up follow up appt and get next paracentesis scheduled.
== END 2020-02-25 15:39 | disposition home or self-care (01) | DRG 280 ==
LOC: ER 07:21 → ED HOLD 12:34 → EDBEDREQ 16:06 → PCU 3S 17:10
PROVIDERS: ADMIT Internal Medicine; ATTEND Internal Medicine
PROC: 0W9G3ZZ Drainage of Peritoneal Cavity, Percutaneous Approach (ICD-10-PCS; 2020-02-23)
PROC: 0W9B3ZZ Drainage of Left Pleural Cavity, Percutaneous Approach (ICD-10-PCS; 2020-02-23)
PROC: 0W9G3ZZ Drainage of Peritoneal Cavity, Percutaneous Approach (ICD-10-PCS; principal; 2020-02-25)
DX: K70.31 Alcoholic cirrhosis of liver with ascites (principal); I13.0 Hypertensive heart and chronic kidney disease with heart failure and stage 1 through stage 4 chronic kidney disease, or unspecified chronic kidney disease; F12.90 Cannabis use, unspecified, uncomplicated; G89.29 Other chronic pain; I50.23 Acute on chronic systolic (congestive) heart failure; J94.8 Other specified pleural conditions; J91.8 Pleural effusion in other conditions classified elsewhere; F10.20 Alcohol dependence, uncomplicated; K42.9 Umbilical hernia without obstruction or gangrene; N18.9 Chronic kidney disease, unspecified; K21.9 Gastro-esophageal reflux disease without esophagitis; K29.70 Gastritis, unspecified, without bleeding; K72.90 Hepatic failure, unspecified without coma; Z59.0 Homelessness; Z86.73 Personal history of transient ischemic attack (TIA), and cerebral infarction without residual deficits; Z79.899 Other long term (current) drug therapy
CPT/HCPCS: 32555; 36415; 49083; 71045; 80048; 80053; 82140; 83735; 83880; 84484; 85025; 85610; 85730; 87081; 93005; 94760; 96365; 96375; 96376; 97116; 97161; 97530; 99285; G0378; J1644; J1940; P9047

== ENCOUNTER 2020-03-11 07:41 | Day surgery (SDC) | payer MEDICAID ==
[~2020-03-11] VITALS: Ht 177.8 cm; Wt 81.7 kg
[2020-03-11] VITALS (10 sets, daily range): BP systolic 100–123; BP diastolic 68–82
[2020-03-11] MEDS ORDERED: normal saline 1000ml 1,000 ML IV PRN (08:15)
[2020-03-11] MEDS: albumin 25% 100mL bottle x 1 IV PRN ×2 (10:23→10:24)
== END 2020-03-11 12:25 | disposition home or self-care (01) ==
LOC: SSTAY O 07:41
PROVIDERS: ATTEND Radiology Diagnostic Radiology
DX: R18.8 Other ascites (principal); I11.0 Hypertensive heart disease with heart failure; I50.9 Heart failure, unspecified; D64.9 Anemia, unspecified; K72.90 Hepatic failure, unspecified without coma; F12.90 Cannabis use, unspecified, uncomplicated; Z72.89 Other problems related to lifestyle; Z79.899 Other long term (current) drug therapy; Z86.73 Personal history of transient ischemic attack (TIA), and cerebral infarction without residual deficits
CPT/HCPCS: 49083; P9047

== ENCOUNTER 2020-03-27 06:51 | Day surgery (SDC) | payer MEDICAID ==
[~2020-03-27] VITALS: Ht 177.8 cm; Wt 81.8 kg
[2020-03-27] VITALS (9 sets, daily range): BP systolic 104–130; BP diastolic 62–83
[2020-03-27] MEDS ORDERED: albumin 25% 100mL bottle x 1 IV PRN (07:20)
--- NOTE | 2020-03-27 07:44 | NUR ---
PT STATES HAS NOT TAKEN ANY MEDICATION AT ALL FOR AT LEAST 1 MONTH OR MORE, NOT ANYTHING FOR PAIN NOR NAUSEA. STATES HE FEELS FINE. BUT DR WANTS HIM TO START TAKING THEM AGAIN, (DR GUILLAUME)
== END 2020-03-27 11:10 | disposition home or self-care (01) ==
LOC: SSTAY O 06:51
PROVIDERS: ATTEND Radiology Diagnostic Radiology
DX: R18.8 Other ascites (principal); I11.0 Hypertensive heart disease with heart failure; I50.9 Heart failure, unspecified; D64.9 Anemia, unspecified; F12.90 Cannabis use, unspecified, uncomplicated; Z86.73 Personal history of transient ischemic attack (TIA), and cerebral infarction without residual deficits; Z79.899 Other long term (current) drug therapy
CPT/HCPCS: 49083; P9047

== ENCOUNTER 2020-04-21 10:25 | Inpatient (IN) | payer MEDICAID ==
[~2020-04-21] VITALS: Ht 177.8 cm; Wt 80.0 kg
[2020-04-21] VITALS (7 sets, daily range): BP systolic 88–137; BP diastolic 52–82
[~2020-04-21 10:25] MED LIST changes: +LISI10TA27 PO; -LISI10TA4 PO
--- NOTE | 2020-04-21 11:05 | NUR ---
Informed MD Dr. Reyes of pt status and current BP, received VO to give IV bolus of NS 1,000ml, fluids infusing
[2020-04-21 11:48] LABS: BASOPHILS % (AUTO) 0.3 % (0-1); EOSINOPHILS % (AUTO) 0.1 % (0-6); HEMATOCRIT 35.5 % (42.0-52.0); HEMOGLOBIN 11.6 g/dl (14.0-17.9); LYMPHOCYTES # (AUTO) 0.3 X10'3 (1.1-4.8); LYMPHOCYTES % (AUTO) 4.9 % (21-51); MEAN CORPUSCULAR HEMOGLOBIN 29.6 PG (27.0-31.0); MEAN CORPUSCULAR HGB CONC 32.6 g/dL (33.0-36.5); MEAN CORPUSCULAR VOLUME 90.6 FL (78-98); MEAN PLATELET VOLUME 9.7 FL (7.4-10.4); MONOCYTES # (AUTO) 0.1 X10'3 (0-0.9); MONOCYTES % (AUTO) 2.3 % (2-12); NEUTROPHILS # (AUTO) 4.8 X10'3 (1.8-7.7); NEUTROPHILS % (AUTO) 92.4 % (42-75); PARTIAL THROMBOPLASTIN TIME 32 SECONDS (22-32); PLATELET COUNT 134 X10'3 (140-440); RED BLOOD COUNT 3.91 X10'6 (4.70-6.10); RED CELL DISTRIBUTION WIDTH 16.2 % (11.5-14.5); WHITE BLOOD COUNT 5.2 X10'3 (4.5-11.0)
[2020-04-21 11:50] LABS: ALANINE AMINOTRANSFERASE 14 U/L (12-78); ALBUMIN 1.4 G/DL (3.4-5.0); ALBUMIN/GLOBULIN RATIO 0.4 (1.1-1.5); ALKALINE PHOSPHATASE 106 IU/L (46-116); ANION GAP 9 (8-16); ASPARTATE AMINO TRANSFERASE 52 U/L (10-37); BILIRUBIN,TOTAL 1.2 MG/DL (0.1-1.0); BLOOD UREA NITROGEN 36 MG/DL (7-18); BUN/CREATININE RATIO 22.1 (5.4-32.0); CALCIUM 8.3 MG/DL (8.5-10.1); CHLORIDE 104 MMOL/L (99-107); CREATININE 1.63 MG/DL (0.60-1.10); POTASSIUM 4.5 MMOL/L (3.5-5.1); SODIUM 136 MMOL/L (135-145); TOTAL CARBON DIOXIDE 22.8 MMOL/L (24-32); TOTAL PROTEIN 4.8 G/DL (6.4-8.2); eGFR 43 ML/MIN
[2020-04-21] MEDS ORDERED: pantoprazole 40MG/NS 100ML BAG 100 ML IV STA (11:56)
[2020-04-21 11:59] LABS: GLUCOSE 37 MG/DL (70-104)
[2020-04-21] MEDS ORDERED: dextrose 50%-water 50ml dispensing syringe IV ONE ×3 (12:00→12:35)
[2020-04-21 12:46] LABS: ETHANOL < 0.010 GM/DL (0.0-0.010)
[2020-04-21] MEDS ORDERED: furosemide 10 MG/1 ML 10ml inj IV ONE (13:15)
[2020-04-21] MEDS ORDERED: octreotide 100mcg/1 ml ampule IV ONE (13:15)
[2020-04-21] MEDS ORDERED: acetaminophen 325mg tablet PO PRN ×2 (13:35)
[2020-04-21] MEDS ORDERED: LIDOcaine 2% 10ml TOPICAL JELLY (Urojet) TP ONE (13:35)
[2020-04-21] MEDS ORDERED: normal saline 1000ml 1,000 ML IV SCH (13:35)
[2020-04-21] MEDS ORDERED: potassium Cl 40MEQ/1/2NS 520ml 520 ML IV PRN ×2 (13:35)
[2020-04-21] MEDS ORDERED: morphine 4 MG/ML inj SYRINge IV PRN (13:35)
[2020-04-21] MEDS ORDERED: potassium Cl 40MEQ/250ML bag 270 ML IV PRN ×2 (13:35)
[2020-04-21] MEDS ORDERED: morphine 2 MG/ML inj. syringe IV PRN (13:35)
[2020-04-21] MEDS ORDERED: ondansetron/PF 4mg/2ml inj IV PRN (13:35)
[2020-04-21] MEDS ORDERED: potassium Cl 20 mEq SR tablet PO PRN ×2 (13:35)
--- NOTE | 2020-04-21 13:35 | NUR ---
PT BEING SEEN BY DR. GONSALEZ, RECEIVED VO TO NOT GIVE LASIX THAT WAS PREVIOUSLY ORDERED.
--- NOTE | 2020-04-21 14:10 | NUR ---
PHARMACY CALLED REGARDING MED SANDOSTATIN, PHARMACY TO ADDRESS AVAILABILITY.
--- NOTE | 2020-04-21 15:10 | NUR ---
NOTIFIED DR. GONSALEZ PT GLUCOSE 49. RECEIVE TVO TO PLACE PT ON HYPOGLYCEMIC PROTOCOL AND TO CHANGE RUNNING FLUIDS FROM NS @ 150 ML/HR TO D5 NS @150 ML/HR
[2020-04-21] MEDS ORDERED: dextrose ORAL solution 15 GM/59 ML bottle PO PRN ×2 (15:15)
[2020-04-21] MEDS ORDERED: insulin Lispro (HumaLOG) vial - multi-dose SQ SCH (15:15)
[2020-04-21] MEDS ORDERED: glucagon, human recombinant 1mg kit SUBCUT PRN (15:15)
[2020-04-21] MEDS ORDERED: MESSAGE TO PHARMACY PO ONE (15:15)
[2020-04-21] MEDS: dextrose 50%-water 50ml dispensing syringe IV PRN ×8 (15:17→23:41)
[2020-04-21] MEDS ORDERED: dextrose 5%-normal saline 1,000 ML IV SCH ×2 (15:22→19:35)
[2020-04-21] MEDS ORDERED: fentaNYL/PF 50MCG/1 ML 2ML syringe ONE (15:49)
[2020-04-21] MEDS ORDERED: LIDOcaine Viscous 15ml cup ONE (15:49)
[2020-04-21] MEDS ORDERED: MIDAZolam 5mg/5ml vial ONE (15:49)
[2020-04-21 16:46] LABS: HEMOGLOBIN A1C 5.3 % (4.5-6.2)
[2020-04-21 16:55] LABS: CLARITY,URINE CLOUDY (Clear); COLOR,URINE YELLOW (Yellow); GLUCOSE, URINE 100 mg/dl (Neg); KETONES,URINE TRACE mg/dl (Neg); LEUKOCYTE ESTERASE ,URINE NEGATIVE (Neg); NITRITES, URINE NEGATIVE (Neg); OCCULT BLOOD,URINE NEGATIVE (Neg); PROTEIN,URINE TRACE mg/dl (Neg)
[2020-04-21 17:09] LABS: UA COLLECTION TYPE FOLEY CATH
[2020-04-21 17:10] LABS: HYALINE CASTS >30 /LPF (NEGATIVE)
[2020-04-21 17:18] LABS: AMORPHOUS URATES 2+
[2020-04-21 17:20] LABS: SODIUM,URINE RANDOM < 15 MEQ/L; TOTAL PROTEIN,URINE RANDOM 49.2 MG/DL
[2020-04-21 17:25] LABS: BACTERIA,URINE FEW /HPF (Neg); SQUAMOUS EPITHELIAL CELL,UR FEW /LPF (FEW)
[2020-04-21 17:26] LABS: RBC,URINE 0-2 /HPF (0-2); WBC,URINE 0-4 /HPF (0-4)
--- NOTE | 2020-04-21 17:42 | NUR ---
Pt BG 44, administered an amp of D50 per protocol.
[2020-04-21 18:20] LABS: UA EOSINOPHILS NO EOS /HPF
--- NOTE | 2020-04-21 18:58 | NUR ---
Accucheck 71. Pt following simple commands, but not speeking. dale catheter replaced with a 16f temp sensing dale catheter. Normal tensive. Awaiting ipa.
--- NOTE | 2020-04-21 19:25 | NUR ---
Dr. Nunez called with update: sats between 82-86% on 6 liters; bp stable now 110-120 systolic MAP wnl; accucheck was 71 45 min ago and now 51 and pt to be given d50 perprotocol; verbal for abg and to decrease current ivf (D5NS) to 30/hr (was 150/hr). reports he was hopeful of Pt getting to the ICU before he left the hospital as he was going to place a central line. MD anticipated Pt to be a candidate for Comfort Care, and also stated Pt was supposed to have a Thorcentisis today. Updated that Pt had and EGD today at bedside.
[2020-04-21 19:57] LABS: ABG BASE EXCESS -9.1 mmol/L (-2.0-2.0); ABG HCO3 19.6 mmol/L (22.0-26.0); ABG OXYGEN SATURATION 88.4 % (94-97); ABG PO2 (T) 56.3 mmHg (75.0-100.0); ALLEN'S TEST POSITIVE; FCOHb 0.5 % (0.0-3.9); FLOW 15 L/min; FMetHb 0.2 % (0.0-1.5); FO2Hb 87.8 % (94-97); PATIENT TEMPERATURE 33.5; TOTAL HEMOGLOBIN 11.4 G/dl (14.0-18.0)
[2020-04-21] MEDS ORDERED: pantoprazole 40 MG vial IV SCH (20:00)
--- NOTE | 2020-04-21 20:02 | NUR ---
dr. armstrong called with abg updated: order received to place bare hugger for temp of 92.7f and to start bipap at 20/5. RT paged WITH NEW ORDERS. ACCUCHECK 61, JUST GIVEN 1/2 AMP D50 PER ORDERS
[2020-04-21] MEDS ORDERED: insulin glargine (Lantus) pen - multi-dose SQ SCH (21:00)
--- NOTE | 2020-04-21 21:16 | NUR ---
PT HAS ROOM ASSIGNMENT IN ICU. BLOOD SUGAR DROPPED TO 34, GIVEN D50 PER PROTOCOL.
--- NOTE | 2020-04-21 21:35 | NUR ---
Patient transferred to room ICU 2044 via gurney by MEDICAL CSR. I have received report from ROXANNE Miller and had the opportunity to ask questions and assume patient care.
[2020-04-21 22:27] LABS: OCCULT BLOOD STOOL POSITIVE (Neg)
[2020-04-21 22:52] LABS: ABG BASE EXCESS -8.4 mmol/L (-2.0-2.0); ABG HCO3 17.9 mmol/L (22.0-26.0); ABG PCO2 (T) 33.9 mmHg (35.0-48.0); ABG PO2 (T) 112.4 mmHg (75.0-100.0); ALLEN'S TEST POSITIVE; FCOHb 0.3 % (0.0-3.9); FMetHb 0.5 % (0.0-1.5); FO2Hb 97.2 % (94-97); PATIENT TEMPERATURE 33.2; RESPIRATORY RATE 16 b/min; TOTAL HEMOGLOBIN 11.2 G/dl (14.0-18.0)
[2020-04-21] MEDS ORDERED: albumin (human) 25% 100 ML IV solution IV ONE ×2 (23:20→23:50)
[2020-04-21] MEDS: Dextrose 10%-water IV solution 1,000 ML IV SCH (23:25)
[2020-04-22] VITALS (25 sets, daily range): BP systolic 61–129; BP diastolic 38–82
[2020-04-22] MEDS: dextrose 50%-water 50ml dispensing syringe IV PRN ×9 (00:38→16:00)
[2020-04-22] MEDS ORDERED: NORepinephrine 8mg/ 250ml NS 250 ML IV SCH (01:10)
[2020-04-22 02:38] LABS: ABG BASE EXCESS -9.6 mmol/L (-2.0-2.0); ABG HCO3 16.9 mmol/L (22.0-26.0); ABG OXYGEN SATURATION 96.1 % (94-97); ABG PCO2 (T) 34.8 mmHg (35.0-48.0); ABG PO2 (T) 81.5 mmHg (75.0-100.0); ALLEN'S TEST POSITIVE; FCOHb 0.3 % (0.0-3.9); FMetHb 0.3 % (0.0-1.5); FO2Hb 95.5 % (94-97); PATIENT TEMPERATURE 34.2; RESPIRATORY RATE 16 b/min; TOTAL HEMOGLOBIN 10.3 G/dl (14.0-18.0)
[2020-04-22 04:15] LABS: PARTIAL THROMBOPLASTIN TIME 67 SECONDS (22-32)
[2020-04-22] MEDS ORDERED: albumin (human) 25% 100 ML IV solution IV ONE (04:25)
[2020-04-22 04:50] LABS: HEMOGLOBIN 9.3 g/dl (14.0-17.9)
[2020-04-22 04:52] LABS: HEMATOCRIT 28.9 % (42.0-52.0); MEAN CORPUSCULAR HEMOGLOBIN 29.7 PG (27.0-31.0); MEAN CORPUSCULAR HGB CONC 32.3 g/dL (33.0-36.5); MEAN CORPUSCULAR VOLUME 91.7 FL (78-98); PLATELET COUNT 87 X10'3 (140-440); RED BLOOD COUNT 3.15 X10'6 (4.70-6.10); RED CELL DISTRIBUTION WIDTH 15.9 % (11.5-14.5)
[2020-04-22 05:01] LABS: ALANINE AMINOTRANSFERASE 6 U/L (12-78); ALBUMIN 1.6 G/DL (3.4-5.0); ALBUMIN/GLOBULIN RATIO 0.7 (1.1-1.5); ALKALINE PHOSPHATASE 55 IU/L (46-116); ANION GAP 12 (8-16); ASPARTATE AMINO TRANSFERASE 57 U/L (10-37); BILIRUBIN,TOTAL 1.3 MG/DL (0.1-1.0); BLOOD UREA NITROGEN 40 MG/DL (7-18); BUN/CREATININE RATIO 20.2 (5.4-32.0); CALCIUM 7.5 MG/DL (8.5-10.1); CHLORIDE 105 MMOL/L (99-107); CREATININE 1.98 MG/DL (0.60-1.10); GLUCOSE 59 MG/DL (70-104); MAGNESIUM 1.3 MG/DL (1.5-2.4); PHOSPHORUS 3.4 MG/DL (2.3-4.5); POTASSIUM 3.6 MMOL/L (3.5-5.1); SODIUM 137 MMOL/L (135-145); TOTAL PROTEIN 3.8 G/DL (6.4-8.2); eGFR 35 ML/MIN
[2020-04-22 05:09] LABS: WHITE BLOOD COUNT 0.2 X10'3 (4.5-11.0)
[2020-04-22] MEDS ORDERED: vancomycin/NS 1 GM ADD-VANTAGE 250 ML IV SCH ×2 (05:10→08:00)
[2020-04-22 05:14] LABS: ABG BASE EXCESS -11.5 mmol/L (-2.0-2.0); ABG HCO3 15.7 mmol/L (22.0-26.0); ABG OXYGEN SATURATION 97.9 % (94-97); ABG PCO2 (T) 35.1 mmHg (35.0-48.0); ABG PO2 (T) 112.2 mmHg (75.0-100.0); FCOHb 0.3 % (0.0-3.9); FMetHb 0.6 % (0.0-1.5); PATIENT TEMPERATURE 33.7; RESPIRATORY RATE 16 b/min; TOTAL HEMOGLOBIN 10.4 G/dl (14.0-18.0)
[2020-04-22] MEDS: pantoprazole 40MG/NS 100ML BAG 100 ML IV SCH ×3 (05:40→14:57)
[2020-04-22 05:47] LABS: ABG OXYGEN SATURATION 87.5 % (94-97); ABG PCO2 (T) 31.1 mmHg (35.0-48.0); ABG PO2 (T) 50.2 mmHg (75.0-100.0); FCOHb 0.3 % (0.0-3.9); FLOW 6 L/min; FMetHb 0.5 % (0.0-1.5); FO2Hb 86.8 % (94-97); PATIENT TEMPERATURE 33.3; TOTAL HEMOGLOBIN 9.9 G/dl (14.0-18.0)
--- NOTE | 2020-04-22 06:00 | NUR ---
2315 Tele MD Cheng called to notify patient about low BP, two 25% albumins was ordered and given. Was also notified that multiple amps of d50 have been pushed on the patient due to critical BGs. patient had been on d5w in NS at 30ml/hr. orders to switch patient d10 at 50 was received. 0130 Tele MD Cheng called a second time due to continued low BP and low BGs. order for Levophed through a PIV with max dose of 0.06 mcg/kg/min was ordered. This was started and titrated until max. D10 was increased to 80 ml/hr. 0230 patient's BP and BG are still unstable. Tele MD Cheng was notified and I suggested central line placement, he agreed then spoke to the charge nurse who then called the ER MD who refused to put in the line, thus, MD Tobin was called and he agreed to come in. 0400 central line placement was placed after two attempts, successful to the right femoral. Patient was then taken to CT, with levo now on central line it was titrated up per protocol while down in CT. Patient did not have bear hugger on during the CT and thus temperature went back down during transport. 0436 Chest tube was placed by MD Tobin to Left later chest, at which point patient drained 2400mL of serous fluid, second atrium had to be placed almost immediately. shortly after patient's blood pressure tanked and 1L NS bolus and 2 25% albumins were ordered and given. 0500 Arterial line was placed by MD Tobin. Patient was maxed on Levo at 1mcg/kg/min. blood cultures were drawn, one out of central line and one out of the arterial line. Vancomycin was started shortly after. All lab criticals were given to MD tobin as soon as I received them as he remained at bedside the entire time labs were resulting. BGs were not checked during the period in which procedures were taken place, D10 was running throughout. multiple chest xrays were done for line placements/ chest tube placement/ checking for pneumo after right subclavian attempt. Patient had to be restrained during procedures because he was confused and pulling at lines and could not have him interferring with sterile field. After procedures patient still continued to try to pull at lines so sitter was ordered.
--- NOTE | 2020-04-22 06:30 | NUR ---
Problems reprioritized. Patient report given, questions answered & plan of care reviewed with ROXANNE Frances.
[2020-04-22 06:39] LABS: GLUCOSE,BODY FLUID 1 MG/DL; LDH,BODY FLUID 651 U/L
[2020-04-22 06:44] LABS: PARTIAL THROMBOPLASTIN TIME 73 SECONDS (22-32)
[2020-04-22 06:56] LABS: TOTAL PROTEIN,BODY FLUID < 2.0 G/DL
[2020-04-22] MEDS: NORepinephrine inj. 32 MG in normal saline 250ml IV soln 218 ML IV SCH ×2 (07:21→14:09)
[2020-04-22] MEDS ORDERED: midazolam 100mg in NS 100ml 100 ML IV PRN (07:30)
[2020-04-22] MEDS ORDERED: midazolam 2 mg/2 ml injection IV ONE (07:30)
[2020-04-22] MEDS ORDERED: fentaNYL/PF 50MCG/1 ML 2ML syringe IV PRN (07:30)
[2020-04-22] MEDS ORDERED: FENTANYL-0.9 % NACL/PF 100 ML IV PRN (07:30)
[2020-04-22] MEDS ORDERED: etomidate 2mg/ml inj. IV ONE (07:30)
[2020-04-22] MEDS: vasopressin inj. 40 UNIT in normal saline 50ml IV soln 38 ML IV SCH ×2 (07:36→15:52)
[2020-04-22 08:06] LABS: TOTAL CELLS COUNTED 50
[2020-04-22 08:08] LABS: GIANT PLATELET FEW; PLATELET ESTIMATE DECREASED
[2020-04-22] MEDS: piperacillin/tazo 3.375gm/50ml 50 ML IV SCH ×2 (08:10→15:51)
[2020-04-22 08:11] LABS: ANISOCYTOSIS 1+
[2020-04-22 08:45] LABS: BFAPPEAR CLOUDY
[2020-04-22 08:47] LABS: BF WBC COUNT 118 /CU MM (0-1000); BFCOLOR YELLOW; BFVOLUME 51 ML
[2020-04-22 08:50] LABS: BF RBC COUNT 4 /CU MM
[2020-04-22 09:00] LABS: ABG BASE EXCESS -16.1 mmol/L (-2.0-2.0); ABG HCO3 12.6 mmol/L (22.0-26.0); ABG OXYGEN SATURATION 92.7 % (94-97); ABG PCO2 (T) 35.6 mmHg (35.0-48.0); ABG PO2 (T) 64.5 mmHg (75.0-100.0); FCOHb 0.3 % (0.0-3.9); FMetHb 0.4 % (0.0-1.5); FO2Hb 92.1 % (94-97); PATIENT TEMPERATURE 33.7; PEEP 5 cm H2O; RESPIRATORY RATE 20 b/min; TIDAL VOLUME 400 mL; TOTAL HEMOGLOBIN 10.5 G/dl (14.0-18.0)
[2020-04-22 09:03] LABS: ALBUMIN,BODY FLUID 0.9 G/DL; AMYLASE,BODY FLUID 9 U/L; GLUCOSE,BODY FLUID 74 MG/DL; TOTAL PROTEIN,BODY FLUID 2.4 G/DL
[2020-04-22 09:07] LABS: LIPASE,BODY FLUID 8 U/L
[2020-04-22 10:14] LABS: LYMPHOCYTES,BODY FLUID 89 %; MONOCYTES,BODY FLUID 9 %; NEUTROPHILS,BODY FLUID 2 %
[2020-04-22 10:18] LABS: BF RBC COUNT 279 /CU MM; BF WBC COUNT 133 /CU MM (0-1000); BFAPPEAR CLEAR; BFCOLOR YELLOW; BFVOLUME 11 ML
[2020-04-22] MEDS ORDERED: epiNEPHrine inj 5 MG, calcium chloride inj. 1,000 MG in normal saline 250ml IV soln 235 ML IV PRN (10:20)
[2020-04-22] MEDS: Dextrose 10%-water IV solution 1,000 ML IV SCH (10:55)
[2020-04-22 13:55] LABS: MEAN CORPUSCULAR HGB CONC 31.3 g/dL (33.0-36.5)
[2020-04-22 13:56] LABS: HEMATOCRIT 31.1 % (42.0-52.0); HEMOGLOBIN 9.7 g/dl (14.0-17.9); MEAN CORPUSCULAR HEMOGLOBIN 29.5 PG (27.0-31.0); MEAN CORPUSCULAR VOLUME 94.3 FL (78-98); MEAN PLATELET VOLUME 9.2 FL (7.4-10.4); PLATELET COUNT 71 X10'3 (140-440)
[2020-04-22] MEDS ORDERED: NORepinephrine 8mg/ 250ml NS 250 ML IV ONE (13:57)
[2020-04-22 14:09] LABS: ALANINE AMINOTRANSFERASE 17 U/L (12-78); ALBUMIN 1.8 G/DL (3.4-5.0); ALBUMIN/GLOBULIN RATIO 0.9 (1.1-1.5); ALKALINE PHOSPHATASE 45 IU/L (46-116); ANION GAP 18 (8-16); ASPARTATE AMINO TRANSFERASE 75 U/L (10-37); BILIRUBIN,TOTAL 1.7 MG/DL (0.1-1.0); BLOOD UREA NITROGEN 40 MG/DL (7-18); BUN/CREATININE RATIO 18.6 (5.4-32.0); CALCIUM 7.2 MG/DL (8.5-10.1); CHLORIDE 105 MMOL/L (99-107); CREATININE 2.15 MG/DL (0.60-1.10); GLUCOSE 69 MG/DL (70-104); MAGNESIUM 1.2 MG/DL (1.5-2.4); POTASSIUM 3.5 MMOL/L (3.5-5.1); SODIUM 136 MMOL/L (135-145); TOTAL PROTEIN 3.8 G/DL (6.4-8.2); eGFR 31 ML/MIN
[2020-04-22 14:10] LABS: TOTAL CARBON DIOXIDE 13.5 MMOL/L (24-32)
[2020-04-22 14:17] LABS: WHITE BLOOD COUNT 0.3 X10'3 (4.5-11.0)
[2020-04-22 14:27] LABS: PARTIAL THROMBOPLASTIN TIME 111 SECONDS (22-32)
[2020-04-22 15:03] LABS: BANDS% (MANUAL) 32 % (0-10); EOSINOPHILS % (MANUAL) 2 % (0-6); GIANT PLATELET FEW; LARGE PLATELETS FEW; LYMPHOCYTES % (MANUAL) 40 % (21-51); METAMYLEOCYTES% (MANUAL) 12 % (0-0); MONOCYTES % (MANUAL) 6 % (2-12); MYELOCYTES % (MANUAL) 6 % (0-0); NEUTROPHILS % (MANUAL) 2 % (42-75); NUCLEATED RED BLOOD CELLS 40 /100WBC (0-0); PLATELET ESTIMATE DECREASED; TOTAL CELLS COUNTED 50
[2020-04-22 15:04] LABS: HYPOCHROMASIA 1+; POLYCHROMASIA FEW
[2020-04-22 15:05] LABS: ANISOCYTOSIS 1+; BURR CELLS 3+; ELLIPTOCYTES FEW; TEAR DROP CELLS FEW
--- NOTE | 2020-04-22 15:16 | NUR ---
Patient has steadily declined throughout the shift today. Patient blood pressure requiring support of Levophed and Vasopressin that are both maxed out. Patient work of breathing increased and then intubated at 0820. Patient neurological status decreased and CT ordered. CT negative. Patient blood pressure and oxygen saturation continued to decline despite vasoactive drugs now including EpiCal and increased vent settings (FI02 100 and current PEEP of 12). Awaiting patient sister and significant other to arrive for discussion of plan of care.
[2020-04-22 15:59] LABS: ABG BASE EXCESS -21.8 mmol/L (-2.0-2.0); ABG HCO3 8.4 mmol/L (22.0-26.0); ABG OXYGEN SATURATION 94.3 % (94-97); ABG PCO2 (T) 33.3 mmHg (35.0-48.0); ABG PO2 (T) 82.1 mmHg (75.0-100.0); FCOHb 0.3 % (0.0-3.9); FMetHb 0.5 % (0.0-1.5); FO2Hb 93.5 % (94-97); PEEP 12 cm H2O; RESPIRATORY RATE 20 b/min; TIDAL VOLUME 486 mL; TOTAL HEMOGLOBIN 11.1 G/dl (14.0-18.0)
--- NOTE | 2020-04-22 16:35 | NUR ---
Pt's sister Caterina at bedside. Spoke with RN and MD and agreed to place pt on comfort care. Sister currently calling pt's significant other and other siblings to inform them of decision. Will notify RT. Comfort care orders placed by Dr. Tobin.
--- NOTE | 2020-04-22 17:08 | NUR ---
Significant other and sister at bedside. Awaiting steward/stewardess. Per Dr Tobin, once pt is extubated, leave fentanyl and versed running and give boluses as needed for comfort care measures rather than using morphine and ativan
--- NOTE | 2020-04-22 18:15 | NUR ---
Patient in room ICU 2044. I have received report from ROXANNE Frances and had the opportunity to ask questions and assume patient care.
--- NOTE | 2020-04-22 19:25 | NUR ---
Patient extubated to comfort care. patient placed on 2L nasal cannula. Pressors turned off. Versed and Fentanyl on for comfort measures. Girlfriend Aletha and sister Caterina at bedside.
--- NOTE | 2020-04-22 20:15 | NUR ---
MD Agarwal notified of patient's passing.
--- NOTE | 2020-04-22 20:15 | NUR ---
RN IS TO DOCUMENT YES TO ALL APPLICABLE AREAS Pronouncement of : 1. Time Physician Notified: 2014 2. Date of :04/22/20 3. Time of : 1959 4. DNR/Withdraw life support documented: yes 5. Monitor strip has been placed on chart: yes 6. Assessment process is of one-minute duration and includes following criteria: a) Patient is unresponsive to all stimuli: yes b) Pupils fixed and non-reactive: yes c) Auscultation of precordium reveals absence of heart tones: yes d) Auscultation of lungs reveals absence of breath sounds: yes e) Absence of blood pressure / all vital signs: yes f) QRS complexes are not present on monitor / EKG strip: yes g) Pacer spikes without capture: n/a 4. Comments:
--- NOTE | 2020-04-22 20:20 | NUR ---
donor network notified of patient's passing. spoke to Yeny who said would call back to release patient's body after discussing tissue donation.
--- NOTE | 2020-04-22 20:50 | NUR ---
Patient's body released by donor network
[2020-04-23] MEDS ORDERED: vancomycin/NS 1 GM ADD-VANTAGE 250 ML X 1 DOSE IV SCH (05:00)
[2020-04-23] MEDS ORDERED: mineral oil/petrolatum ophthal oint EACHEYE SCH (08:00)
[2020-04-25] MEDS ORDERED: VANCOMYCIN LEVEL IV ONE (04:30)
== END 2020-04-22 19:58 | disposition expired | DRG 710 ==
LOC: ER 10:26 → ED HOLD 13:34 → ICU 2S 22:03
PROVIDERS: ADMIT Internal Medicine Critical Care Medicine; ATTEND Internal Medicine Critical Care Medicine
PROC: 5A09357 Assistance with Respiratory Ventilation, Less than 24 Consecutive Hours, Continuous Positive Airway Pressure (ICD-10-PCS; 2020-04-21)
PROC: 0DJ08ZZ Inspection of Upper Intestinal Tract, Via Natural or Artificial Opening Endoscopic (ICD-10-PCS; 2020-04-21)
PROC: 5A1935Z Respiratory Ventilation, Less than 24 Consecutive Hours (ICD-10-PCS; principal; 2020-04-22)
PROC: 0BH17EZ Insertion of Endotracheal Airway into Trachea, Via Natural or Artificial Opening (ICD-10-PCS; 2020-04-22)
PROC: 0WCQ8ZZ Extirpation of Matter from Respiratory Tract, Via Natural or Artificial Opening Endoscopic (ICD-10-PCS; 2020-04-22)
PROC: 06HY33Z Insertion of Infusion Device into Lower Vein, Percutaneous Approach (ICD-10-PCS; 2020-04-22)
PROC: B54BZZA Ultrasonography of Right Lower Extremity Veins, Guidance (ICD-10-PCS; 2020-04-22)
PROC: 0W9B00Z Drainage of Left Pleural Cavity with Drainage Device, Open Approach (ICD-10-PCS; 2020-04-22)
PROC: 04HY32Z Insertion of Monitoring Device into Lower Artery, Percutaneous Approach (ICD-10-PCS; 2020-04-22)
PROC: 4A133B1 Monitoring of Arterial Pressure, Peripheral, Percutaneous Approach (ICD-10-PCS; 2020-04-22)
PROC: 4A133J1 Monitoring of Arterial Pulse, Peripheral, Percutaneous Approach (ICD-10-PCS; 2020-04-22)
DX: A40.9 Streptococcal sepsis, unspecified (principal); J96.00 Acute respiratory failure, unspecified whether with hypoxia or hypercapnia; J93.9 Pneumothorax, unspecified; N17.9 Acute kidney failure, unspecified; K70.31 Alcoholic cirrhosis of liver with ascites; R65.21 Severe sepsis with septic shock; K22.11 Ulcer of esophagus with bleeding; D50.0 Iron deficiency anemia secondary to blood loss (chronic); J91.8 Pleural effusion in other conditions classified elsewhere; F12.90 Cannabis use, unspecified, uncomplicated; I11.0 Hypertensive heart disease with heart failure; Z60.2 Problems related to living alone; I34.0 Nonrheumatic mitral (valve) insufficiency; I50.9 Heart failure, unspecified; K21.01 Gastro-esophageal reflux disease with esophagitis, with bleeding; F10.20 Alcohol dependence, uncomplicated; K29.70 Gastritis, unspecified, without bleeding; K72.90 Hepatic failure, unspecified without coma; Z59.0 Homelessness; Z79.899 Other long term (current) drug therapy; Z86.73 Personal history of transient ischemic attack (TIA), and cerebral infarction without residual deficits; Z51.5 Encounter for palliative care
CPT/HCPCS: 31645; 36415; 36600; 43235; 70450; 71045; 71250; 80053; 80320; 81001; 82042; 82140; 82150; 82272; 82570; 82803; 82945; 82948; 83036; 83605; 83615; 83690; 83735; 84100; 84156; 84157; 84300; 85007; 85018; 85025; 85610; 85730; 86885; 86900; 86901; 87040; 87070; 87075; 87081; 87207; 89051; 93005; 93306; 93308; 94002; 94660; 94760; 94799; 96365; 99152; 99291; C9113; G0378; J0171; J1815; J2250; J2354; J2543; J3010; J3370; J3490; J7040; J7042; J7050; P9047